=== PATIENT | female | born 1980 | race Two or more races ===

== ENCOUNTER 2024-09-17 14:34 | Emergency (ER) | payer MEDICAID, SELFPAY ==
[2024-09-17 14:49] VITALS: BP 180/80; PULSE 81; RESP 18; TEMP 37; O2SAT 99; BMI 46.2
[2024-09-17] MEDS: IBUPROFEN TAB 400 MG TABLET 800 MG PO (15:37)
--- NOTE | 2024-09-17 16:20 | PD.EDEAR ---
ED Ear RME/HPI General Chief complaint: Ear Stated complaint: Left ear pain X 1 week Time Seen by Provider: 09/17/24 14:37 Arrival date/time: 09/17/24 14:34 44-year-old female presents emergency department complains of left ear pain ongoing x 1 week patient reports no fever nausea or vomiting Limitations: no limitations Related Data Home Medications ?Medication ?Instructions ?Recorded ?Confirmed Vitamin * 1 tab PO QDAY #0 tabs 04/28/14 08/08/22 ferrous sulfate 325 mg (65 mg 325 mg PO DAILY 07/26/22 08/08/22 iron) tablet (Iron (ferrous sulfate)) Previous Rx's ?Medication ?Instructions ?Recorded meloxicam 7.5 mg tablet 7.5 mg PO BID #10 tabs 06/28/24 amoxicillin 875 mg-potassium 1 tab PO BID 7 days #14 tabs 09/17/24 clavulanate 125 mg tablet ibuprofen 800 mg tablet 800 mg PO TID PRN pain #30 tabs 09/17/24 ofloxacin 0.3 % ear drops 10 drop otic (ear) QDAY 10 days 09/17/24 #10 mL Allergies Allergy/AdvReac Type Severity Reaction Status Date / Time No Known Allergies Allergy Unverified 06/28/24 10:46 Review of Systems Review of Systems Systems Reviewed: All systems reviewed, normal except as documented Constitutional Constitutional: Reports system reviewed and no additional complaints, except as documented, Denies fever(s) and Denies headache(s) Eyes Eyes: Reports system reviewed and no additional complaints, except as documented and Denies blurry vision ENT Ears, Nose, Mouth, and Throat: Reports system reviewed and no additional complaints, except as documented, Reports otalgia, Denies headache(s), Denies nasal congestion and Denies nasal discharge Cardiovascular Cardiovascular: Reports system reviewed and no additional complaints, except as documented, Denies chest pain and Denies dyspnea Respiratory Respiratory: Reports system reviewed and no additional complaints, except as documented, Denies chest congestion, Denies cough and Denies dyspnea Gastrointestinal Gastrointestinal: Reports system reviewed and no additional complaints, except as documented and Denies abdominal pain Integumentary/Breasts Skin/Breast: Reports system reviewed and no additional complaints, except as documented and Denies rash Neurologic Neurologic: Reports system reviewed and no additional complaints, except as documented, Reports as per HPI and Denies headache(s) Past Medical History Past Medical History NEUROLOGIC: Negative Neurological Disorders CARDIAC: Positive Hypertension (mother and father); Negative Congestive Heart Failure RESPIRATORY: Negative Chronic Obstructive Pulmonary Disease (COPD) or Asthma GASTROINTESTINAL: Negative Gastrointestinal Disorders GENITOURINARY: Negative Genitourinary Disorders or Renal Disease REPRODUCTIVE: Negative Pelvic Inflammatory Disease MUSCULOSKELETAL: Negative Musculoskeletal Disorders ENDOCRINE: Positive Diabetes Mellitus Type 2 (mother and father); Negative Diabetes Mellitus Type 1 HEMATOLOGIC: Negative Blood Disorders PSYCHO/SOCIAL: Positive Depression, Anxiety and Depression OTHER HISTORY: Negative Autoimmune Disease, Anesthesia Reactions, MRSA, Clostridium Difficile or Cancer Family History FAMILY HISTORY: Positive Family Cancer (grandfather judy); Negative Family Cardiac Disorders Surgical History SURGICAL: Negative Endocrine Surgery, Ear Surgery or Section Social History SMOKING STATUS: Never smoker ED Exam General Limitations: Present no limitations General appearance: Present alert and in no apparent distress Head Head exam: Present atraumatic Eye Eye exam: Present normal appearance, PERRL and EOMI ENT ENT exam: Present mucous membranes moist and other (Foreign body left ear) Neck Neck exam: Present normal inspection, full ROM and trachea midline Chest Chest inspection: Present normal inspection and symmetric chest wall rise Respiratory Respiratory exam: Present normal lung sounds bilaterally Cardiovascular Cardiovascular exam: Present regular rate, normal rhythm and normal heart sounds Abdominal Exam Abdominal exam: Present soft and normal bowel sounds Extremities Exam Extremities exam: Present normal inspection and full ROM Back Exam Back exam: Present normal inspection and full ROM Neurological Exam Neurological exam: Present alert, oriented X3 and CN II-XII intact Psychiatric Psychiatric exam: Present normal affect and normal mood Skin Skin exam: Present warm, dry, intact and normal color Course Quality Measures none Orders Category Date Time Status ED Ear Irrigation X1 Care 09/17/24 15:27 Completed Ibuprofen Tab [Motrin Tab] Med 09/17/24 15:27 Discontinued 800 mg PO X1 ONE Vital Signs Vital signs: Vital Signs Temperature 98.6 F 09/17/24 14:49 Pulse Rate 81 09/17/24 14:49 Respiratory Rate 18 09/17/24 14:49 Blood Pressure 180/80 H 09/17/24 14:49 Pulse Oximetry (%) 99 09/17/24 14:49 Oxygen Delivery Method Room Air 09/17/24 14:49 O2 saturation 99% room air within normal limits Ear Patient data External records reviewed:: [facility] previous records Clinical information provided by:: patient Social determinants that could affect healthcare access:: none Patient has the following chronic illnesses:: none How is presenting disease/condition affected by chronic disease/condition?: no chronic disease Evaluation data The following diagnostics were reviewed and interpreted by me:: other (specify) Lab and/or radiology exams considered but not ordered:: Consider not indicated Interpretation Summary: N/A Medications / Prescriptions Medications or Prescriptions considered but not ordered:: Given Medication administrations:: Medication Administration History Discontinued Medications Ibuprofen (Ibuprofen Tab 400 Mg Tablet) 800 mg PO X1 ONE Stop: 09/17/24 15:28 Last Admin: 09/17/24 15:37 Dose: 800 mg Documented By: KF Given Consultations Consultation(s) initiated? (list below): No Diagnosis Most likely diagnosis given after review of the tests above:: Left otitis externa, foreign body left ear Admission Indicated Admission indicated?: not indicated Admission Request Was there a request for admission?: No Disposition Plan Disposition Plan: Discharge Discharge Attestation Discharge Attestation: The patient and all family members were given an opportunity to ask questions and understood the discharge instructions. Discharge instructions specifically effects, indications for sooner follow up or return to the emergency department, and the expected course of current diagnosis. Patient condition: Stable Medical Decision Making MDM Narrative MDM Narrative: 44-year-old female presents emerged department complains of left ear pain ongoing x 1 week patient reports no fever nausea or vomiting On exam patient appears to have cottonball in her left ear as well as infection Left ear irrigated copiously I cannot clearly see the TM after the lavage and foreign bodies removed Patient reports she feels significantly better Patient be discharged home on antibiotics Patient discharged home in no distress to follow-up with primary care doctor in the next 24 to 48 hours and for any worsening symptoms to return to the ER immediately Differential Diagnosis Differential Diagnosis: Otitis media, otitis externa, incision tube dysfunction Medical Records Medical records reviewed: Yes I reviewed the patient's medical records. Discharge Plan Plan Patient Disposition: HOME (Self Care) Disposition Comment: Stable Prescriptions/Referrals Prescriptions/Med Rec: New ibuprofen 800 mg tablet 800 mg PO TID PRN (Reason: pain) Qty: 30 0RF ofloxacin 0.3 % drops 10 drop otic (ear) QDAY 10 Days Qty: 10 0RF amoxicillin-pot clavulanate 875-125 mg tablet 1 tab PO BID 7 Days Qty: 14 0RF No Action Vitamin * 1 EACH tablet 1 tab PO QDAY Qty: 0 ferrous sulfate [Iron (ferrous sulfate)] 325 mg (65 mg iron) Tablet 325 mg PO DAILY meloxicam 7.5 mg tablet 7.5 mg PO BID Qty: 10 0RF Problem List Clinical Impression: Foreign body in left ear, Otitis externa Patient/Caregiver Discharge Instructions Education Materials: Anatomy of the Ear Additional Instructions: Please follow up with your primary care doctor in the next 24-48hrs for any worsening symptoms return here immediately Print Language: Malian Stand Alone Forms: Rosa Award Info., Patient Portal Info Letter PA/RESIDENCE LEASING AGENT Supervising Physician PA/RESIDENCE LEASING AGENT Supervising Physician: Dr Nazario
== END 2024-09-17 16:26 | disposition home or self-care (01) ==
LOC: SERX 16:24
PROVIDERS: Emergency Provider Emergency Medicine; PCP Family Medicine
DX: T16.2XXA Foreign body in left ear, initial encounter (principal); H60.92 Unspecified otitis externa, left ear; W44.8XXA Other foreign body entering into or through a natural orifice, initial encounter
CPT/HCPCS: 69200; 99283; A9270

== ENCOUNTER → 2025-03-23 | Outpatient (CLI) | payer MEDICAID, SELFPAY ==
--- NOTE | 2025-03-23 09:00 | XR_ITS ---
Examination: Breast ultrasound, unilateral, left complete Date and time of exam: March 23, 2025 0923 hours INDICATIONS: Left breast pain 6 months Technique: Real-time smiley scale ultrasonographic imaging performed left breast including all 4 quadrants as well as nipple retroareolar and axillary region. Findings: 1:00 cyst 4 x 5 mm 5:00 cyst 4 x 6 mm No solid nodules IMPRESSION: BI-RADS Category 2: Benign findings
--- NOTE | 2025-03-23 10:00 | XR_ITS ---
Examination: Diagnostic digital mammography, bilateral Computer aided detection 3-D breast Tomosynthesis, bilateral Date and time of exam: March 23, 2025 0911 hours Comparison September 03, 2023 INDICATIONS: Left breast pain 7 months Technique: Nonmagnified MLO, CC views of the breasts to been obtained, reconstructed from 3-D Tomosynthesis images. R2 computer aided detection program utilized for evaluation of suspicious masses and/or abnormal calcifications. 3-D Tomosynthesis images obtained. Findings: The breasts are heterogeneously dense, which may obscure small masses Benign calcifications. No suspicious masses Impression: BI-RADS Category 0: Incomplete: Need additional imaging evaluation Awaiting the breast sonography report.
== END | disposition home or self-care (01) ==
DX: N64.4 Mastodynia (principal); N60.02 Solitary cyst of left breast; R92.333 Mammographic heterogeneous density, bilateral breasts
CPT/HCPCS: 76641; 77062; 77066; G0279

== ENCOUNTER 2025-04-21 13:01 | Inpatient (IN) | payer BC, MEDICAID, SELFPAY ==
--- NOTE | 2025-04-21 | XR_ITS ---
Examinations: MRI Brain without intravenous contrast. MRA brain without intravenous contrast. MRA carotids without intravenous contrast 3-D vascular reconstructions Date and time of exam: April 21, 2025 1607 hours INDICATIONS: Stroke alert today, onset focal neurologic deficit beginning 8:00 AM, including headache dizziness left facial droop Technique: Multiple axial and sagittal images of the brain have been obtained MRA brain carotid images without contrast obtained, including 3-D postprocessing, vascular maximum intensity projection images Findings: Sellaturcica is not enlarged. The optic chiasm and infundibular stalk are not remarkable. Prepontine and interpeduncular cisterns are not enlarged. No localized enlargement of the medulla or patrick. Fourth ventricle and cerebellar tonsils normal in position. Subacute hemorrhage is not seen. Fourth ventricle is midline. Mass in the cerebellopontine angle region is not evident. 7th and 8th nerve complexes exhibits symmetry. Globes are symmetrical with no retro-orbital mass. Increased white matter signal not seen Diffusion-weighted images demonstrate no focus of restricted diffusion Mass-effect upon the ventricular system is not identified. MRA carotid images no significant carotid stenoses. MRA brain images no large vessel cerebral occlusions Impression: Negative for acute hemorrhage, mass effect or midline shift No acute infarct No MR findings diagnostic for demyelinating disease No cerebral large vessel arterial occlusions
[2025-04-21 13:16] VITALS: BP 149/92; PULSE 71; RESP 18; TEMP 36.9; O2SAT 96
--- NOTE | 2025-04-21 13:36 | XR_ITS ---
Examination: CTA carotids with intravenous contrast CTA brain, head with intravenous contrast. 2-D sagittal, coronal reconstructions. 3-D reconstructions. Exam date and time: April 21, 2025 1348 hours INDICATIONS: Sudden onset generalized weakness slurred speech focal neurologic deficit today, stroke alert CTDI: vol (mGy) 33 DLP: (mGycm) 126 Technique: Multiple CTA axial brain, head carotid images post intravenous contrast injection 100 cc, [id number]. 2-D sagittal, coronal reconstructions. 3-D reconstructions, 3-D post processing including vascular maximum intensity projection images. Low dose protocols were performed. One or more of the following dose reduction techniques were used; automated exposure control, adjustment of the mA and/or KV according to patient size, use of iterative reconstruction technique. Findings: No significant common carotid carotid bifurcation or internal carotid artery stenoses Codominant vertebral arteries with no critical stenoses of the vertebral arteries in the neck Intracranial vertebral arteries basilar artery and posterior cerebral branches do fill Juxtasellar or supracondylar portions internal carotid arteries demonstrate no occlusions M1 segments middle cerebral arteries middle cerebral artery trifurcation vessels anterior cerebral arteries are intact IMPRESSION: No significant neck arterial stenoses No cerebral large vessel arterial occlusions
--- NOTE | 2025-04-21 13:36 | XR_ITS ---
Examination: CT brain head without contrast. 2-D sagittal coronal reconstructions Date and time of exam:April 21, 2025 1340 hours INDICATIONS: Stroke alert, onset onset generalized body weakness slurred speech beginning this morning CTDI: vol (mGy):53.7 DLP: (mGycm):1067 Technique: Multiple CT axial sections of the brain have been obtained, 5 mm slice thickness. Contrast has not been administered. 2-D sagittal, coronal reconstructions have been obtained Low dose protocols were performed. One or more of the following dose reduction techniques were used; automated exposure control, adjustment of the mA and/or KV according to patient size, use of iterative reconstruction technique. Findings: No significant ventricular enlargement. Intra-axial or extra-axial hemorrhage density is not seen. No mass effect or midline shift Basal cisterns are not remarkable. Fourth ventricle is midline. Cranial vault intact. Impression: Negative for acute hemorrhage, mass effect or midline shift
--- NOTE | 2025-04-21 13:38 | EKG_ITS ---
[facility] Test Date: 2025-04-21 Pat Name: LEEANNE FORTUNE Department: Room: - Gender: Female [place] Operator: : 1980 Requested By: Matt Torres Order Number: [id number] Reading MD: Matt Torres Measurements Intervals [place] Rate: 74 P: 50 WI: 170 QRS: 41 QRSD: 94 T: 53 QT: 387 QTc: 430 Interpretive Statements SINUS RHYTHM No previous ECG available for comparison /store/S0/[id number].pdf
--- NOTE | 2025-04-21 13:52 | PD.EDNEURO ---
Neuro Symptoms Deficit-RME/HPI General Chief Complaint: Dizziness Stated Complaint: Dizzy, SMITH Time Seen by Provider: 04/21/25 13:06 Source: patient and family Arrival date/time: This is a case of a 44-year-old female with history of anemia and prediabetes came in in the emergency room due to headache and dizziness since 8:00 in the morning patient denies any weakness numbness or tingling sensation after I did my examination patient noted to have sudden left facial droop and some slurring of speech code stroke was called Limitations: no limitations Related Data Home Medications ?Medication ?Instructions ?Recorded ?Confirmed Vitamin * 1 tab PO QDAY #0 tabs 04/28/14 08/08/22 ferrous sulfate 325 mg (65 mg 325 mg PO DAILY 07/26/22 08/08/22 iron) tablet (Iron (ferrous sulfate)) Previous Rx's ?Medication ?Instructions ?Recorded meloxicam 7.5 mg tablet 7.5 mg PO BID #10 tabs 06/28/24 ibuprofen 800 mg tablet 800 mg PO TID PRN pain #30 tabs 09/17/24 Allergies Allergy/AdvReac Type Severity Reaction Status Date / Time No Known Allergies Allergy Verified 04/21/25 13:05 Review of Systems Review of Systems Systems Reviewed: All systems reviewed, normal except as documented Constitutional Constitutional: Reports system reviewed and no additional complaints, except as documented, Reports as per HPI, Denies chills, Denies daytime sleepiness, Denies difficulty sleeping, Denies excessive sweating, Denies fatigue, Denies fever(s), Denies frequent falls, Reports headache(s), Denies increased appetite, Denies poor appetite, Denies lethargy, Denies malaise, Denies night sweats, Denies snoring, Denies stops breathing during sleep, Denies weakness, Denies weight gain and Denies weight loss Eyes Eyes: Reports system reviewed and no additional complaints, except as documented, Reports as per HPI, Reports blurry vision, Denies change in vision, Denies decreased night vision, Denies diplopia, Denies eye discharge, Denies dry eyes, Denies exophthalmos, Denies floaters, Denies irritation, Denies itchy eyes, Denies loss of peripheral vision, Denies loss of vision, Denies other visual disturbances, Denies photophobia, Denies requires corrective lenses, Denies seeing flashes, Denies spots in vision and Denies tunnel vision ENT Ears, Nose, Mouth, and Throat: Reports system reviewed and no additional complaints, except as documented, Reports as per HPI, Denies abnormal hearing, Denies disequilibrium, Reports dizziness, Reports headache(s) and Reports vertigo Cardiovascular Cardiovascular: Reports system reviewed and no additional complaints, except as documented, Reports as per HPI, Denies chest pain, Denies dyspnea and Denies syncope Respiratory Respiratory: Reports system reviewed and no additional complaints, except as documented, Reports as per HPI, Denies cough, Denies dyspnea and Denies snoring Gastrointestinal Gastrointestinal: Reports system reviewed and no additional complaints, except as documented, Reports as per HPI, Denies abdominal pain, Denies nausea and Denies vomiting Musculoskeletal Musculoskeletal: Reports system reviewed and no additional complaints, except as documented, Reports as per HPI, Denies abnormal gait, Denies numbness and Denies tingling Neurologic Neurologic: Reports system reviewed and no additional complaints, except as documented, Reports as per HPI, Denies abnormal gait, Denies abnormal hearing, Denies abnormal movements, Reports abnormal speech, Denies behavioral changes, Denies burning sensations, Denies confusion, Denies convulsions, Denies disequilibrium, Reports dizziness, Denies localized weakness, Denies frequent falls, Reports headache(s), Denies lack of coordination, Denies loss of vision, Denies memory loss, Denies numbness, Denies other visual disturbances, Denies paresthesias, Denies radicular pain, Denies restless legs, Denies seizure-like activity, Denies sensory deficit, Denies syncope, Denies tingling, Denies tremor(s), Reports vertigo, Denies weakness and Reports other (Facial droop) Psychiatric Psychiatric: Denies behavioral changes, Denies confusion and Denies memory loss Endocrine Endocrine: Denies excessive sweating and Denies fatigue Allergic/Immunologic Allergic/Immunologic: Denies itchy eyes Past Medical History Past Medical History NEUROLOGIC: Negative Neurological Disorders CARDIAC: Positive Hypertension (mother and father); Negative Congestive Heart Failure RESPIRATORY: Negative Chronic Obstructive Pulmonary Disease (COPD) or Asthma GASTROINTESTINAL: Negative Gastrointestinal Disorders GENITOURINARY: Negative Genitourinary Disorders or Renal Disease REPRODUCTIVE: Negative Pelvic Inflammatory Disease MUSCULOSKELETAL: Negative Musculoskeletal Disorders ENDOCRINE: Positive Diabetes Mellitus Type 2 (mother and father); Negative Diabetes Mellitus Type 1 HEMATOLOGIC: Negative Blood Disorders PSYCHO/SOCIAL: Positive Depression, Anxiety and Depression OTHER HISTORY: Negative Autoimmune Disease, Anesthesia Reactions, MRSA, Clostridium Difficile or Cancer Family History FAMILY HISTORY: Positive Family Cancer (grandfather wallykemia); Negative Family Cardiac Disorders Surgical History SURGICAL: Negative Endocrine Surgery, Ear Surgery or Section Social History SMOKING STATUS: Never smoker ED Exam General Limitations: Present no limitations General appearance: Present alert and in no apparent distress Head Head exam: Present atraumatic, normocephalic and normal inspection Eye Eye exam: Present normal appearance, PERRL and EOMI ENT ENT exam: Present normal exam, normal oropharynx and mucous membranes moist Neck Neck exam: Present normal inspection, full ROM and trachea midline; Absent tenderness, meningismus or lymphadenopathy Chest Chest inspection: Present normal inspection and symmetric chest wall rise; Absent tenderness or rash Respiratory Respiratory exam: Present normal lung sounds bilaterally; Absent respiratory distress, wheezes, stridor, accessory muscle use or prolonged expiratory phase Cardiovascular Cardiovascular exam: Present regular rate, normal rhythm and normal heart sounds; Absent bradycardia, tachycardia, irregular rhythm, systolic murmur or diastolic murmur Abdominal Exam Abdominal exam: Present soft and normal bowel sounds; Absent distention, tenderness, guarding, rebound, rigidity, diminished bowel sounds or hyperactive bowel sounds Extremities Exam Extremities exam: Present normal inspection and full ROM Back Exam Back exam: Present normal inspection and full ROM Neurological Exam Neurological exam: Present alert, oriented X3, normal gait, motor sensory deficit and other (Patient is awake alert oriented x 4 with some slurring of speech left facial droop the rest of the cranial nerve test is normal steady gait negative Babinski memory intact); Absent reflexes normal Expanded Neurological Exam Patient oriented to: Present person, place and time Speech: Present fluid speech (Slurring with speech) Cranial nerves: Normal: EOM function (II, III, IV, ), facial sensation (V), gag reflex (IX), spinal accessory function (XI) and tongue deviation (XII) and Abnormal Left: facial palsy (VII) Cerebellar function: Normal: finger to nose and heel to suárez Cerebellar function: Present normal gait Motor strength - LUE: 5/5 Motor strength - RUE: 5/5 Motor strength - LLE: 5/5 Motor strength - RLE: 5/5 Upper motor neuron exam: Normal: dwihgt neglect, pronator drift, Babinski sign and sensory extinction Sensory exam upper extremity: Normal: light touch, pin prick, temperature and 2 point discrimination Sensory exam lower extremity: Normal: light touch, pin prick, temperature and 2 point discrimination DTR: 2+: biceps (L) and biceps (R) Psychiatric Psychiatric exam: Present normal affect and normal mood Skin Skin exam: Present warm, dry, intact and normal color Course Quality Measures none Orders Category Date Time Status Admit to Inpatient Status Routine Admission 04/21/25 14:08 Active Patient Condition Routine Admission 04/21/25 14:07 Ordered Bedside Blood Glucose NOW Care 04/21/25 13:38 Active COVID-19 Screening Questionnaire NOW Care 04/21/25 14:00 Active Roustabout Supervisor NOW Care 04/21/25 13:38 Active Continuous Pulse Oximetry NOW Care 04/21/25 13:38 Active Decision to Admit X1 Care 04/21/25 14:00 Active EKG (ED ONLY) *Do not use* NOW Care 04/21/25 13:38 Active In and Out Catheter NEEDED Care 04/21/25 13:38 Active Insert IV NOW Care 04/21/25 13:38 Active NIH Stroke Scale now Care 04/21/25 13:38 Active NPO NOW Care 04/21/25 13:38 Active Notify provider NEEDED Care 04/21/25 14:07 Active Nurse Swallow Screen x1 Care 04/21/25 13:38 Active Consult to Neurology / Tele-Neurology Routine Cons 04/21/25 13:[address] angio stroke protocol Stat Exams 04/21/25 13:[address] stroke protocol Stat Exams 04/21/25 13:36 Completed EKG (ED Only) Stat Exams 04/21/25 13:38 Ordered CBC Stat Lab 04/21/25 13:28 Completed Comprehensive Metabolic Panel Stat Lab 04/21/25 13:28 Completed Drug Screen,Urine Stat Lab 04/21/25 13:38 Ordered HCG Titer if Positive Stat Lab 04/21/25 13:28 Completed Magnesium Stat Lab 04/21/25 13:28 Completed Partial Thromboplastin Time Stat Lab 04/21/25 13:28 Completed Prothrombin Time with INR Stat Lab 04/21/25 13:28 Completed Troponin I Stat Lab 04/21/25 13:28 Completed Urinalysis Stat Lab 04/21/25 13:38 Ordered Urine Culture Stat Lab 04/21/25 13:38 Ordered Aspirin Med 04/21/25 14:00 Once 325 mg PO X1 ONE Code Status Routine Oth 04/21/25 14:07 Ordered Vital Signs Vital signs: Vital Signs Temperature 98.5 F 04/21/25 13:16 Pulse Rate 71 04/21/25 13:16 Respiratory Rate 18 04/21/25 13:16 Blood Pressure 149/92 H 04/21/25 13:16 Pulse Oximetry (%) 96 04/21/25 13:16 Oxygen Delivery Method Room Air 04/21/25 13:16 Patient is afebrile not tachycardic not tachypneic BP stable not hypoxic oxygen saturation is 96% in room air Neuro Symptoms / Deficit MDM Narrative MDM Narrative:: This is a case of a 44-year-old female with history of anemia and diabetes came in in the emergency room due to headache and dizziness since 8:00 in the morning patient denies any weakness numbness or tingling sensation after I did my examination patient noted to have sudden left facial droop and some slurring of speech code stroke was called physical examination patient is awake alert oriented not in distress nontoxic looking well-hydrated well-nourished negative for meningeal sign HEENT exam is normal PERRL EOM intact normal conjunctiva no pappiledema lungs sound is clear no crackles no rales no retraction no stridor either heart normal rate regular rhythm no murmur neurological exam pertinent is left facial droop and slurring of speech patient memory intact steady gait awake alert oriented x 4 negative Babinski motor 5/5 in all extremities sensory +2 in all extremities reflex +2 in all extremities patient was brought in the CT scan as soon as the code stroke and noted to be negative for acute hemorrhage mass I spoke to Dr. edmondson neurologist on-call discussed patient condition history and physical examination since the CT scan were normal he ordered only aspirin 81 mg and patient will be admitted for stroke workup spoke to Dr. serrano hospitalist discussed patient condition history and physical examination relayed the neurologist suggestion and accept patient admission discussed with the patient the treatment plan admission and agreed Patient data External records reviewed:: [facility] previous records Clinical information provided by:: patient and family Social determinants that could affect healthcare access:: none Patient has the following chronic illnesses:: None How is presenting disease/condition affected by chronic disease/condition?: no chronic disease Evaluation data The following diagnostics were reviewed and interpreted by me:: lab results and radiology exam(s) Lab and/or radiology exams considered but not ordered:: Reviewed Interpretation Summary: Reviewed Medications / Prescriptions Medications or Prescriptions considered but not ordered:: Given Medication administrations:: Medication Administration History Aspirin (Aspirin 325 Mg Tablet) 325 mg PO X1 ONE Stop: 04/21/25 14:01 Given Consultations Consultation(s) initiated? (list below): Yes Consultation #1 (Physician, Specialty, Details): dr edmondson admit pt for cva workup start aspirin Consultation #2 (Physician, Specialty, Details): dr serrano discussed patient condition history and physical examination agreed and accept patient for admission Diagnosis Neuro Differential Diagnosis: subarachnoid hemorrhage, cerebrovascular accident and transient cerebral ischemia Most likely diagnosis given after review of the tests above:: CVA Admission Indicated Admission indicated?: indicated Explain why admission is indicated or not indicated:: CVA Admission Request Was there a request for admission?: Yes Admission Attestation Admission request attestation: Discussed case with [] from Hospitalist service regarding admission. Discussed patients ED course, exam findings, labs, and radiology results. The Hospitalist [agrees,declines] to accept the patient for admission. Disposition Plan Disposition Plan: Admit Discharge Plan Plan Patient Disposition: Admit Acute Care w/in Hospital Patient condition on transfer: Stable Prescriptions/Referrals Prescriptions/Med Rec: No Action Vitamin * 1 EACH tablet 1 tab PO QDAY Qty: 0 ibuprofen 800 mg tablet 800 mg PO TID PRN (Reason: pain) Qty: 30 0RF ferrous sulfate [Iron (ferrous sulfate)] 325 mg (65 mg iron) Tablet 325 mg PO DAILY meloxicam 7.5 mg tablet 7.5 mg PO BID Qty: 10 0RF Problem List Clinical Impression: Acute CVA (cerebrovascular accident) Patient/Caregiver Discharge Instructions Education Materials: ED Stroke, Completed Print Language: American Stand Alone Forms: Rosa Award Info., Patient Portal Info Letter PA/AUDIO VISUAL SECRETARY Supervising Physician PA/AUDIO VISUAL SECRETARY Supervising Physician: dr cool
[2025-04-21 13:56] LABS: Basophils # (Auto) 0.1 Thou/mm3 (0.0-0.2); Basophils % (Auto) 0 % (0-2.5); Eosinophils # (Auto) 0.5 Thou/mm3 (0.0-0.5); Eosinophils % (Auto) 3 % (0-10); Hematocrit 40.5 % (36.0-46.0); Hemoglobin 12.7 g/dL (12.0-16.0); Immature Granulocytes Auto 0.08 Thou/mm3 (0.00-0.00); Lymphocytes # (Auto) 5.0 Thou/mm3 (1.0-4.8); Lymphocytes % (Auto) 30 % (10-50); Mean Corpuscular HGB Conc 31.4 g/dl (31.0-37.0); Mean Corpuscular Hemoglobin 24.2 pg (25.0-35.0); Mean Corpuscular Volume 77 fL (80-100); Monocytes # (Auto) 1.0 Thou/mm3 (0.0-0.8); Monocytes % (Auto) 6 % (0-12); Neutrophils # (Auto) 9.9 Thou/mm3 (1.8-7.7); Neutrophils % (Auto) 60 % (37-80); Nucleated Red Blood Cell # 0.00 Thou/mm3 (0.00-0.00); Nucleated Red Blood Cell % 0 /100 WBC (0); Platelet Count 380 Thou/mm3 (140-440); RDW Standard Deviation 42.4 fL (36.4-46.3); Red Blood Count 5.24 Miln/mm3 (4.00-5.20); White Blood Count 16.6 Thou/mm3 (3.6-11.0)
[2025-04-21 14:03] LABS: HCG Titer if Positive Negative; INR 1.0 (0.9-1.3); Partial Thromboplastin Time 30.3 Seconds (22.0-36.0); Prothrombin Time 10.9 Seconds (9.0-12.2)
[2025-04-21 14:06] LABS: Alanine Aminotransferase 18 U/L (10-49); Albumin, Serum 4.7 gm/dL (3.5-5.0); Albumin/Globulin Ratio 1.5 (1.2-2.2); Alkaline Phosphatase 105 U/L (46-116); Anion Gap 9 (7-16); Aspartate Amino Transferase 24 U/L (0-34); BUN/Creatinine Ratio 15 Ratio (12-20); Bilirubin,Total 0.4 mg/dL (0.3-1.2); Blood Urea Nitrogen 9 mg/dL (9-23); Calcium 9.1 mg/dL (8.3-10.6); Calcium (Corrected) 9.1 mg/dL (8.5-10.1); Carbon Dioxide 24.0 mMol/L (20.0-31.0); Chloride 105 mMol/L (98-107); Creatinine (Component) 0.6 mg/dL (0.6-1.3); Globulin 3.2 gm/dL (2.3-3.5); Glucose 92 mg/dL (74-106); Magnesium 2.0 mg/dL (1.6-2.6); Osmolality,Calculated 274 (275-295); Potassium 4.0 mMol/L (3.4-5.1); Sodium 138 mMol/L (136-145); Total Protein 7.9 gm/dL (5.7-8.2); Troponin I < 0.002 ng/mL (0.0-0.045); eGFR > 60 See Note
--- NOTE | 2025-04-21 14:09 | PD.TNEUROPRO ---
Tele Neuro Progress Note Progress Note Date 04/21/25 Most Recent Vital Signs Last Vital Signs Temp 98.5 F 04/21/25 13:16 Pulse 71 04/21/25 13:16 Resp 18 04/21/25 13:16 BP 149/92 H 04/21/25 13:16 Pulse Ox 96 04/21/25 13:16 O2 Del Method Room Air 04/21/25 13:16 Laboratory-Coagulation Panel PT 10.9 Seconds (9.0-12.2) 04/21/25 13:28 INR 1.0 (0.9-1.3) 04/21/25 13:28 APTT 30.3 Seconds (22.0-36.0) 04/21/25 13:28 Progress Note Narrative [facility] Patient Name:???Latoya Dorantes Date of :???1980 Identification Number:??? Date of Service:???04/21/2025 13:30:33 Diagnosis:?R47.81 - Slurred speech Impression: ?44-year-old female without significant past medical history except for anemia and obesity. ? last known well was around 8 AM when she felt dizzy she also developed nausea vomiting slurring of the speech, difficulty finding words and weakness on the left arm and leg. ?Apparently her symptoms got worse when I saw her it was extremely hard to understand what she is saying she is very slurred and stuttering. She has difficulty finding words. ?She has decreased sensation around her left face and arm with mild drift of her left upper extremity left lower extremity. CT head was negative for acute finding. She has a lot of anxiety symptoms and hyperventilation. ? ? ?Possible new ischemic stroke she was outside the window for thrombolytics CTA is pending to rule out LVO. ?If there is no LVO plan for routine stroke admission and workup. ?If she is not able to swallow we can do rectal aspirin 300 mg x 1 in the emergency room and tomorrow 300 mg daily. ?If she is able to swallow we can do oral aspirin 325 mg in the emergency room followed by tomorrow baby aspirin and Plavix 75 mg daily. ?Permissive hypertension as below. ?MRI of the brain without contrast. ?Echocardiogram with bubble study, fasting lipid profile hemoglobin A1c. ?If she does indeed have a stroke she would benefit from hypercoagulable workup given the relatively young age. ?PT, OT, speech. ?DVT prophylaxis Lovenox or heparin subcu can be used. ?Telemetry monitoring. ?Neurology to follow. Our recommendations are outlined below. Recommendations: ? Stroke/Telemetry Floor ? Neuro Checks (Q2) ? Bedside Swallow Eval ? DVT Prophylaxis ? IV Fluids, Normal Saline ? Head of Bed 30 Degrees ? Euglycemia and Avoid Hyperthermia (PRN Acetaminophen) ? Antihypertensives PRN if Blood pressure is greater than 220/120 or there is a concern for End organ damage/contraindications for permissive HTN. If blood pressure is greater than 220/120 give labetalol PO or IV or Vasotec IV with a goal of 15% reduction in BP during the first 24 hours. Sign Out: ? Discussed with Emergency Department Provider ? Discussed with Rapid Response Team Advanced Imaging: Advanced imaging has been ordered. Results pending. Metrics: Last Known Well: 04/21/2025 08:00:00 Dispatch Time: 04/21/2025 13:30:33 Arrival Time: 04/21/2025 13:02:00 Initial Response Time: 04/21/2025 13:35:53Symptoms: left sided numbness. Initial patient interaction: 04/21/2025 13:35:54 NIHSS Assessment Completed: 04/21/2025 13:38:00Patient is not a candidate for Thrombolytic. Thrombolytic Medical Decision: 04/21/2025 13:38:00Patient was not deemed candidate for Thrombolytic because of following reasons: LKW outside 4.[address] Head: CT head unremarkable for acute infarction or hemorrhage per Radiology: no acute findings. I personally reviewed all the CT images that were available to me and it showed: no acute findings. Primary Provider Notified of Diagnostic Impression and Management Plan on: 04/21/2025 14:00:00 History of Present Illness:Patient is a 44 year old Female. Patient was brought by private transportation with symptoms of left sided numbness. 44-year-old female without significant past medical history except for anemia and obesity. last known well was around 8 AM when she felt dizzy she also developed nausea vomiting slurring of the speech, difficulty finding words and weakness on the left arm and leg. Apparently her symptoms got worse when I saw her it was extremely hard to understand what she is saying she is very slurred and stuttering. She has difficulty finding words. She has decreased sensation around her left face and arm with mild drift of her left upper extremity left lower extremity. CT head was negative for acute finding. She has a lot of anxiety symptoms and hyperventilation. Past Medical History: ?There is no history of Hypertension ?There is no history of Diabetes Mellitus ?There is no history of Hyperlipidemia ?There is no history of Atrial Fibrillation ?There is no history of Coronary Artery Disease ?There is no history of Stroke Medications: No Anticoagulant use? No Antiplatelet use Reviewed EMR for current medications Allergies:? Reviewed Social History: Smoking: No Family History: There is no family history of premature cerebrovascular disease pertinent to this consultation ROS : 14 Points Review of Systems was performed and was negative except mentioned in HPI. Past Surgical History: There Is No Surgical History Contributory To Today?s Visit Examination: BP(176/108),?Pulse(85), 1A: Level of Consciousness - Alert; keenly responsive?+ 0 1B: Ask Month and Age - Both Questions Right?+ 0 1C: Blink Eyes & Squeeze Hands - Performs Both Tasks?+ 0 2: Test Horizontal Extraocular Movements - Normal?+ 0 3: Test Visual Renteria - No Visual Loss?+ 0 4: Test Facial Palsy (Use Grimace if Obtunded) - Normal symmetry?+ 0 5A: Test Left Arm Motor Drift - Drift, but doesn't hit bed?+ 1 5B: Test Right Arm Motor Drift - No Drift for 10 Seconds?+ 0 6A: Test Left Leg Motor Drift - Drift, but doesn't hit bed?+ 1 6B: Test Right Leg Motor Drift - No Drift for 5 Seconds?+ 0 7: Test Limb Ataxia (FNF/Heel-Burton) - No Ataxia?+ 0 8: Test Sensation - Mild-Moderate Loss: Less Sharp/More Dull?+ 1 9: Test Language/Aphasia - Severe Aphasia: Fragmentary Expression, Inference Needed, Cannot Identify Materials?+ 2 10: Test Dysarthria - Severe Dysarthria: Unintelligble Slurring or Out of Proportion to Aphasia?+ 2 11: Test Extinction/Inattention - No abnormality?+ 0 NIHSS Score:?7 NIHSS Free Text :?lot of stutering Pre-Morbid Modified Lizzie Scale:0 Points = No symptoms at all Spoke with :?JOSEPH CURRY This consult was conducted in real time using interactive audio and video technology. Patient was informed of the technology being used for this visit and agreed to proceed. Patient located in hospital and provider located at home/office setting. Patient is being evaluated for possible acute neurologic impairment and high probability of imminent or life-threatening deterioration. I spent total of 60 minutes providing care to this patient, including time for face to face visit via telemedicine, review of medical records, imaging studies and discussion of findings with providers, the patient and/or family. Dr Kristine Wang [facility] For Inpatient follow-up with [facility] physician please call [facility] at . As we are not an outpatient service for any post hospital discharge needs please contact the hospital for assistance. If you have any questions for the [facility] physicians or need to reconsult for clinical or diagnostic changes please contact us via [facility] at .
--- NOTE | 2025-04-21 14:26 | PD.RESHP ---
Documentation for date of: 04/21/25 HPI History of Present Illness Chief complaint: Left facial droop and numbness and weakness in left upper+lower extremity History of present illness: This patient is a 44-year-old female with past medical history of iron deficiency anemia, uke-lnsnikc-pjeoxugut diabetes and migraine presented to the ED on 04/21/2025 with chief complaint of dizziness and pain in her head while she woke up this morning at 11 AM. Patient stated that she was going to restroom while she had headache explained as popping sensation in her head and she felt weakness more on the left side. She sat on the bed and did not hit her head on the floor. She endorsed feeling dizzy. While she was brought in by EMS they noticed left-sided facial droop with slurred speech. She denied any fever, cough, chest pain, burning or dysuria or any other symptom. She had no past medical history of stroke. She felt weaker on her left side. Her symptoms persisted while she was examined in the ED. Stroke alert was initiated. She also reported to have decreased sensation around the left face and arm. Mild drift of left upper extremity as well as left lower extremity. NIHSS score was 6. Last well-known time was 8 AM. Patient arrived in the ER at 13: 02. Head CT showed no acute changes. Patient was out of window for tPA and not a candidate for thrombolytic outside 4.5-hour window. Teleneuro recommended admitting for stroke workup. In the ED, patient was mildly hypertensive, had regular pulse, afebrile and saturating well on room air. Labs showed leukocytosis, hemoglobin stable with low MCV. Coagulation panel was unremarkable. Chemistry panel was unremarkable. Kidney function stable. Blood glucose 92. Troponin I was negative. Urinalysis showed ketones only. U tox was pending. Brain MRI showed no acute infarct. In the ED, patient received aspirin 300 mg per rectum x 1. PMH: Iron deficiency anemia, migraine, diabetes PSH: Cholecystectomy SH: Denies smoking, drinking alcohol. No history of illicit drug use Allergies: NKDA Home medications: Iron pills, multivitamin, metformin 500 mg, sumatriptan. Patient is not taking topiramate anymore for migraine. Patient is admitted for further workup of possible stroke versus acute anxiety. Review of Systems Review of Systems Systems Reviewed: All systems reviewed, normal except as documented Past Medical History Past Medical History NEUROLOGIC: Negative Neurological Disorders CARDIAC: Positive Hypertension (mother and father); Negative Congestive Heart Failure RESPIRATORY: Negative Chronic Obstructive Pulmonary Disease (COPD) or Asthma GASTROINTESTINAL: Negative Gastrointestinal Disorders GENITOURINARY: Negative Genitourinary Disorders or Renal Disease REPRODUCTIVE: Negative Pelvic Inflammatory Disease MUSCULOSKELETAL: Negative Musculoskeletal Disorders ENDOCRINE: Positive Diabetes Mellitus Type 2 (mother and father); Negative Diabetes Mellitus Type 1 HEMATOLOGIC: Negative Blood Disorders PSYCHO/SOCIAL: Positive Depression, Anxiety and Depression OTHER HISTORY: Negative Autoimmune Disease, Anesthesia Reactions, MRSA, Clostridium Difficile or Cancer Family History FAMILY HISTORY: Positive Family Cancer (grandfather lukemia); Negative Family Cardiac Disorders Surgical History SURGICAL: Negative Endocrine Surgery, Ear Surgery or Section Social History SMOKING STATUS: Never smoker Exam Vital Signs Temp Pulse Resp BP Pulse Ox O2 Del Method 98.5 F 71 18 149/92 H 96 Room Air 04/21/25 13:16 04/21/25 13:16 04/21/25 13:16 04/21/25 13:16 04/21/25 13:16 04/21/25 13:16 Narrative Exam GENERAL APPEARANCE: AxOx4,obese female with mild slurred speech in no acute distress. HEENT: NC, AT. MMM. EOMI, clear conjunctiva, oropharynx clear. NECK: Supple without lymphadenopathy. No stiffness or restricted ROM. HEART: Regular rate and regular rhythm, normal S1/S2, no m/r/g LUNGS: CTAB, moving air well. No crackles or wheezes are heard. ABDOMEN: Soft, nontender, nondistended with good bowel sounds heard. BACK: No CVAT, no obvious deformity. EXTREMITIES: Without cyanosis, clubbing or edema. NEUROLOGICAL: Grossly nonfocal. Alert and orientedx3. Left Facial drop. Left upper ext power 3/5 Rt upper ext power 4/5 power in RLE and power 5/5 in LLE Skin: Warm and dry without any rash. Psych: appropriate mood and affect Results: Labs 04/23/25 05:30 04/23/25 05:30 Labs: Short CBC 04/21/25 Range/Units 13:28 WBC 16.6 H (3.6-11.0) Thou/mm3 Hgb 12.7 (12.0-16.0) g/dL Hct 40.5 (36.0-46.0) % Plt Count 380 (140-440) Thou/mm3 BMP 04/21/25 13:28 Sodium 138 Potassium 4.0 Chloride 105 Carbon Dioxide 24.0 BUN 9 Creatinine 0.6 Glucose 92 Calcium 9.1 Cardiac Enzymes 04/21/25 Range/Units 13:28 Troponin I < 0.002 (0.0-0.045) ng/mL Liver Function 04/21/25 Range/Units 13:28 Total Bilirubin 0.4 (0.3-1.2) mg/dL AST 24 (0-34) U/L ALT 18 (10-49) U/L Alkaline Phosphatase 105 (46-116) U/L Albumin 4.7 (3.5-5.0) gm/dL Quality Measures Quality Measures VTE prophylaxis (Heparin SC) Medications Home Medications and Allergies Home Medications ?Medication ?Instructions ?Recorded ?Confirmed ?Type ferrous sulfate 325 mg (65 mg 325 mg PO DAILY 07/26/22 04/22/25 History iron) tablet (Iron (ferrous sulfate)) ascorbic acid (vitamin C) 1,000 mg 1 g PO DAILY 04/22/25 04/22/25 History tablet cholecalciferol (vitamin D3) 125 125 mcg PO DAILY 04/22/25 04/22/25 History mcg (5,000 unit) capsule metformin 500 mg tablet,extended 1,000 mg PO HS 04/22/25 04/22/25 History release 24hr (osmotic) sumatriptan succinate 50 mg tablet 50 mg PO Q6HR PRN migraine headache 04/22/25 04/22/25 History tirzepatide (weight loss) 2.5 2.5 mg subcut QWEEK 04/22/25 04/22/25 History mg/0.5 mL subcutaneous pen injector (Zepbound) topiramate 25 mg tablet 25 mg PO HS 04/22/25 04/22/25 History Allergies Allergy/AdvReac Type Severity Reaction Status Date / Time No Known Allergies Allergy Verified 04/21/25 13:05 Visit Medications Acetaminophen (Acetaminophen 325 Mg Tablet) 650 mg PO Q6H PRN PRN Reason: Fever >101.5 Stop: 05/21/25 14:16 Acetaminophen (Acetaminophen 325 Mg Tablet) 650 mg PO Q6H PRN PRN Reason: PAIN SCALE 1-3 (mild Stop: 05/21/25 14:16 Aspirin (Aspirin Ec 81 Mg Tabec) 81 mg PO QDAY FOZIA Stop: 05/22/25 08:59 Atorvastatin Calcium (Atorvastatin Calcium 20 Mg Tablet) 40 mg PO HS FO[facility]IA Stop: 05/21/25 20:59 Heparin Sodium (Porcine) (Heparin Sod Inj 5000 Unit/Ml Vial) 5,000 unit SC Q8HR FO[facility] Stop: 05/05/25 14:29 Hydralazine HCl (Hydralazine Inj 20 Mg/Ml Vial) 10 mg IVP Q6H PRN PRN Reason: Give if SBP>220 AND DBP>120 Stop: 05/21/25 14:29 Sodium Chloride (Ns) 1,000 mls @ 75 mls/hr IV .[id number] FOZIA Stop: 05/21/25 14:29 Ondansetron HCl (Ondansetron Inj 2 Mg/Ml Inj 2 Ml) 4 mg IVP Q6H PRN; Protocol PRN Reason: NAUSEA OR VOMITING Stop: 05/21/25 14:16 Pantoprazole Sodium (Pantoprazole Inj 40 Mg Vial) 40 mg IVP QDAY FO[facility] Stop: 05/21/25 14:29 Sennosides (Senna Tablet) 1 tab PO QDAY PRN; Protocol PRN Reason: constipation Stop: 05/21/25 14:16 Discontinued Medications Aspirin (Aspirin 325 Mg Tablet) 325 mg PO X1 ONE Stop: 04/21/25 14:01 Assessment & Plan Plan This patient is a 44-year-old female with past medical history of iron deficiency anemia and migraine presented to the ED on 04/21/2025 with chief complaint of dizziness and pain in her head while she woke up this morning at 11 AM. Patient stated that she was going to restroom while she had headache explained as popping sensation in her head and she felt weakness more on the left side. #?Possible stroke versus acute anxiety Patient presented with dizziness, left upper and lower extremity weakness with left-sided facial droop with numbness on left side of face. Also reported to have some blurred vision. Left upper extremity arm drift noted. Facial droop was noticed arrival in the ER. Less likely [place] palsy since forehead wrinkling intact Last well-known time 8 AM. Patient arrived at 13:00. NIHSS score 6. Head CT showed no acute changes. Patient was out of window for tPA and not a candidate for thrombolytic 4.5 hour window. Teleneuro recommended stroke workup. Head and neck CTA showed no LVO. MRI brain showed no acute infarction. No LVO. Patient failed swallow screen. She was given aspirin per rectal 300 mg x 1. U tox was negative. UA showed ketones only. Troponin I was negative. EKG showed sinus rhythm with QTc 430. Plan: Admitted to telemetry Continue aspirin 81 mg and Plavix 75 mg Neurochecks every 4 hourly Heparin subcut for DVT prophylaxis Neuro consulted, appreciate recs Orthostatic vitals Head of bed elevation 30 degrees IV fluid normal saline at 75 cc/h Pending echocardiogram with bubble study Antihypertensives PRN if Blood pressure is greater than 220/120 or there is a concern for End organ damage/contraindications for permissive HTN. If blood pressure is greater than 220/120 give labetalol PO or IV or Vasotec IV with a goal of 15% reduction in BP during the first 24 hours. Referred to PT, speech therapy Daily labs Will likely perform hypercoagulable workup tomorrow #Leukocytosis likely reactive -White count 16.6. No fever spikes were reported. Plan: ? Continue IV fluids ? Monitor for fever spikes #History of migraine -Patient takes sumatriptan. She used to take topiramate in the past. Plan: -Pain management as needed #History of iron deficiency anemia -Hemoglobin 12.7, MCV 77. -Patient is on iron pills for iron deficiency anemia. Plan -Resume patients home meds #Elevated fibrinogen seen per chart review -Patient had a fibrinogen level 626. Plan: -Rechecked fibrinogen levels #Hx of diabetes: -Unknown A1c Plan: -A1c AM -Insulin s/s -Hypoglycemia protocol in place Health Maintenance Diet: Failed swallow screen; awaiting speech eval DVT prophylaxis: Heparin SC GI prophylaxis: Protonix 40 mg IV day Code status: Full code Disp: Patient is admitted for workup of stroke vs acute anxiety. Patient was seen and discussed with attending Physician, Dr Epifanio Mcfarlane MD PGY-3 Attending Provider Attestation/Addendum Rupert, Flory Godfrey DO, attest that I was physically present for the moses portions of the service and evaluated the patient with the resident and I reviewed and discussed the case with the resident and agree with the resident's findings and plans of care as documented above Patient is a 44-year-old female with past medical history of NIDDM, iron deficiency anemia and migraines who presented to the ED complaining of dizziness that began at around 8 in the morning. She states that she went to rest thinking that she would sleep off her dizziness, but when she woke up at 10 in the morning, she felt as though she was going to fall and had generalized weakness. Upon evaluation in the ED, patient was noted to have some slurred speech and deviation of her lower lip to the right. She also had tongue deviation to the right. Per at bedside, patient did not have any speech impairments until she got to the hospital. Patient has noted to have decreased left-sided facial sensation and decreased sensation in her left upper and lower extremities. She also has 3 out of 5 motor strength in the left upper and left lower extremity. Patient patient states that she takes metformin, vitamin D, iron supplements, vitamin D supplements at home. She denies taking any other types of herbal supplements. Patient also denies history of stroke. Stroke alert was called in the ED and head CT was done showing no acute intracranial findings. CTA was also negative for any large vessel occlusions. Teleneuro was consulted from ED and recommended further stroke workup. Patient was noted to have elevated systolic blood pressure in the 170s in the ED and afebrile. Blood glucose was within normal limits. Will admit patient to telemetry for further workup and medical management of acute CVA. Will follow-up with MRI, echo, neuro recommendations and start patient on aspirin and statin if able to tolerate p.o. Will follow-up with speech therapy evaluation. Will allow for more permissive hypertension for the first 24 hours.
[2025-04-21] MEDS: SODIUM CHLORIDE 0.9% 1000 ML 1,000 ML 75 ML IV (15:03)
[2025-04-21] MEDS: HEPARIN SOD INJ 5000 UNIT/ML VIAL SC ×2 (15:03→22:04)
[2025-04-21 15:16] LABS: Troponin I < 0.002 ng/mL (0.0-0.045)
[2025-04-21 16:01] VITALS: BP 173/101; PULSE 79; RESP 18; TEMP 36.6; O2SAT 96
--- NOTE | 2025-04-21 16:23 | PD.RESCONSUL ---
HPI Data of Consult Requesting Physician: Flory Godfrey DO Admitting Provider: Flory Godfrey DO Attending Provider: Flory Godfrey DO Primary Care Provider: Physician No Primary/Family Consult Narrative History of present illness: Ms Robertson is a 44-year-old female with PMHx of iron deficiency anemia, migraines, and prediabetes who presented to the ED 04/21 due to dizziness and bilateral blurry vision when she woke up at 8 AM this morning. This progressed to a headache and left facial droop, left upper and lower extremity weakness, and decrease in the left upper and lower extremity sensation to light touch when she was examined in the ED. initial NIHSS score 7. CT head without contrast negative for acute hemorrhage. CTA negative for LVO. MRI stroke protocol negative for LVO. BP max in ED 180/80. EKG showed normal sinus rhythm with QTc WNL (430). Labs significant for mild leukocytosis at 16.6. Of note patient has a history of 1 miscarriage. She has 6 children. She denies history of stroke/TIA, heart failure, DVT, arrhythmias, thyroid disorders, history of clotting. She denies any episodes in the past that are similar to her current symptoms. 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 Home medications include metformin, vitamin D3, vitamin C, and iron. She follows with Dr. Resendiz for the past 3 to 4 years at the [facility] in [place], [place]. Patient was previously prescribed topiramate and sumatriptan for migraines. Upon examination patient reports that she continues to experience dizziness, slurred speech, weakness of the left upper and lower extremities, and decreased sensation in the upper and lower extremities. She denies headache, nausea, vomiting, abdominal pain, heart palpitations, sweating. cc:: cc: Flory Godfrey DO Review of Systems Review of Systems Narrative Review of Systems: 14 point ROS negative other than HPI Exam Vital Signs Temp Pulse Resp BP Pulse Ox O2 Del Method 98 F 79 18 173/101 H 96 Room Air 04/21/25 16:01 04/21/25 16:01 04/21/25 16:01 04/21/25 16:01 04/21/25 16:04/21/25 16:01 Narrative Exam General: No acute distress, well nourished Eye: PERRL, EOMI, normal conjunctiva, no scleral icterus HENT: Normocephalic, atraumatic, moist oral mucosa Neck: Supple, non-tender, no JVD, no lymphadenopathy Lungs: Non-labored respirations, symmetric chest rise Heart: Peripheral pulses intact bilaterally Abdomen: Soft, non-tender, non-distended Musculoskeletal: Normal range of motion and strength Skin: Skin is warm, dry, no rashes or lesions. Psychiatric: Cooperative, appropriate mood and affect Neurologic: Mental status: Orientation: Oriented to person, place, time, and situation Communication: Patient is cooperative and can follow simple instructions Language: Speech fluent in Latvian and Serbian, slowed rate, slurred speech, normal and volume, comprehension intact Cranial nerves: CN II: Visual renteria intact CN III: Pupils equal, round, and reactive to light CN III, IV, : No gaze deviation, no nystagmus Horizontal pursuit: intact Vertical pursuit: intact Ptosis: none CN V: Facial sensation to light touch intact on the right at the forehead, cheeks, and jaw line. Decreased in V1/2/3 distribution on left CN VII: Lower facial droop appreciated on left CN VIII: Able to hear and respond to conversation at normal volume, intact to finger rub CN IX, X: Palate elevation symmetric, uvula midline CN XI: Head turn and shoulder shrug strong, symmetric bilaterally CN XII: Normal tongue protrusion without deviation, no fasciculations Motor: Normal bulk and tone No atrophy No abnormal movements or fasciculations Muscle strength: Shoulder abduction: R 5/5 L 4/5 Elbow flexion: R 5/5 L 4/5 Elbow extension: R 5/5 L 4/5 Hip flexion: R 5/5 L 4/5 Hip extension: R 5/5 L 4/5 Knee flexion: R 5/5 L 4/5 Knee extension: R 5/5 L 4/5 Dorsiflexion and plantarflexion R 5/5 L 4/5 Sensory: Sensation to light touch intact on right upper and lower extremities. Sensation to light touch decreased in left upper and lower extremities. Reflexes: Biceps (C5-6): R 2+ L 2+ Brachioradialis (C5-6): R 2+ L 2+ Triceps (C7-8): R 2+ L 2+ Patellae (L3-4): R 2+ L 2+ Achilles (S1-2):R 2+ L 2+ Cerebellum: RUE: No dysmetria (finger to nose) LUE: No dysmetria (finger to nose) RLE: No dysmetria (heel to burton) LLE: Unable to assess due to weakness of left lower extremity Gait: deferred NIHSS 04/21 at 1730 1A: Level of Consciousness - Alert; keenly responsive?+ 0 1B: Ask Month and Age - Both Questions Right?+ 0 1C: Blink Eyes & Squeeze Hands - Performs Both Tasks?+ 0 2: Test Horizontal Extraocular Movements - Normal?+ 0 3: Test Visual Renteria - No Visual Loss?+ 0 4: Test Facial Palsy (Use Grimace if Obtunded) - Partial paralysis (lower face) + 2 5A: Test Left Arm Motor Drift - Drift, but doesn't hit bed?+ 1 5B: Test Right Arm Motor Drift - No Drift for 10 Seconds?+ 0 6A: Test Left Leg Motor Drift - Drift, but doesn't hit bed?+ 1 6B: Test Right Leg Motor Drift - No Drift for 5 Seconds?+ 0 7: Test Limb Ataxia (FNF/Heel-Burton) - No Ataxia?+ 0 8: Test Sensation - Mild-Moderate Loss: Can sense being touched?+ 1 9: Test Language/Aphasia - Mild-moderate aphasia: some obvious changes without significant limitation?+ 1 10: Test Dysarthria - Mild-moderate dysarthria: slurring but can be understood?+ 1 11: Test Extinction/Inattention - No abnormality?+ 0 NIHSS Score:?7 Results Labs 04/21/25 13:28 04/21/25 13:28 Labs: Short CBC 04/21/25 Range/Units 13:28 WBC 16.6 H (3.6-11.0) Thou/mm3 Hgb 12.7 (12.0-16.0) g/dL Hct 40.5 (36.0-46.0) % Plt Count 380 (140-440) Thou/mm3 BMP 04/21/25 13:28 Sodium 138 Potassium 4.0 Chloride 105 Carbon Dioxide 24.0 BUN 9 Creatinine 0.6 Glucose 92 Calcium 9.1 Cardiac Enzymes 04/21/25 04/21/25 Range/Units 13:28 14:47 Troponin I < 0.002 < 0.002 (0.0-0.045) ng/mL Liver Function 04/21/25 Range/Units 13:28 Total Bilirubin 0.4 (0.3-1.2) mg/dL AST 24 (0-34) U/L ALT 18 (10-49) U/L Alkaline Phosphatase 105 (46-116) U/L Albumin 4.7 (3.5-5.0) gm/dL Quality Measures Quality Measures VTE prophylaxis Medications Home Medications and Allergies Home Medications ?Medication ?Instructions ?Recorded ?Confirmed ?Type Vitamin * 1 tab PO QDAY #0 tabs 04/28/14 08/08/22 History ferrous sulfate 325 mg (65 mg 325 mg PO DAILY 07/26/22 08/08/22 History iron) tablet (Iron (ferrous sulfate)) Allergies Allergy/AdvReac Type Severity Reaction Status Date / Time No Known Allergies Allergy Verified 04/21/25 13:05 Visit Medications Acetaminophen (Acetaminophen 325 Mg Tablet) 650 mg PO Q6H PRN PRN Reason: Fever >101.5 Stop: 05/21/25 14:16 Acetaminophen (Acetaminophen 325 Mg Tablet) 650 mg PO Q6H PRN PRN Reason: PAIN SCALE 1-3 (mild Stop: 05/21/25 14:16 Aspirin (Aspirin Ec 81 Mg Tabec) 81 mg PO QDAY [facility] Stop: 05/22/25 08:59 Atorvastatin Calcium (Atorvastatin Calcium 20 Mg Tablet) 40 mg PO HS [facility] Stop: 05/21/25 20:59 Clopidogrel Bisulfate (Clopidogrel Bisulfate 75 Mg Tablet) 75 mg PO QDAY [facility] Stop: 05/22/25 08:59 Heparin Sodium (Porcine) (Heparin Sod Inj 5000 Unit/Ml Vial) 5,000 unit SC Q8HR [facility] Stop: 05/05/25 14:29 Last Admin: 04/21/25 15:03 Dose: 5,000 unit Hydralazine HCl (Hydralazine Inj 20 Mg/Ml Vial) 10 mg IVP Q6H PRN PRN Reason: Give if SBP>220 AND DBP>120 Stop: 05/21/25 14:29 Sodium Chloride (Ns) 1,000 mls @ 75 mls/hr IV .[id number] [facility] Stop: 05/21/25 14:29 Last Admin: 04/21/25 15:03 Dose: 75 mls/hr Ondansetron HCl (Ondansetron Inj 2 Mg/Ml Inj 2 Ml) 4 mg IVP Q6H PRN; Protocol PRN Reason: NAUSEA OR VOMITING Stop: 05/21/25 14:16 Pantoprazole Sodium (Pantoprazole Inj 40 Mg Vial) 40 mg IVP QDAY FOZIA Stop: 05/21/25 14:29 Last Admin: 04/21/25 15:02 Dose: 40 mg Sennosides (Senna Tablet) 1 tab PO QDAY PRN; Protocol PRN Reason: constipation Stop: 05/21/25 14:16 Discontinued Medications Aspirin (Aspirin 300 Mg Supp) 300 mg MN X1 ONE Stop: 04/21/25 15:16 Assessment & Plan Plan #Left-sided weakness Most likely 2/2 complex migraine Initial symptoms: dizziness, headache, LKAW 0800 on 04/21. Developed left facial droop, decreased sensation of left face and LUE, weakness of LUE and LLE, word finding difficulty, and slurred speech in ED. initial NIHSS. Patient continues to have symptoms (NIHSS 7) at 1730, though patient reports mild improvement of weakness and no headache. No tPA given as patient outside of window CT head w/o: Negative for acute hemorrhage, mass effect, midline shift CTA: Negative for LVO MRI stroke protocol: Negative for acute hemorrhage, mass effect, midline shift. No acute infarct. No findings diagnostic for demyelinating disease. No LVO. UA and UDS negative. Beta-hCG negative Pt has history of migraines, Rx Topiramate and Sumatriptan in the past Plan: - Start Topiramate 25 mg and increase by 25 mg once per weak to max dose 100 mg. F/U outpatient - Observe overnight, pend discharge 04/22 depending on clinical presentation - Hypercoagulable workup - Pending lipids, A1C, TSH, TTE #Hx Iron deficiency anemia Home med: iron supplement No anemia on admission Plan: - Iron panel #Mild leuyukocytosis Patient reports chronically elevated WBC on repeat CBC Afebrile, no source of infection suspected at this time Plan: - F/U hematology outpatient #Prediabetes Home meds: Metformin Plan: - Pending A1c Plan discussed with Dr. Zackery Oakley, PGY1 Attending Provider Attestation/Addendum I personally have seen and examined the patient at the bedside and I agreed with resident's findings, assessment and plan of care. Her presenting symptoms are most likely related to complicated migraine/TIA. I agreed with the continuing aspirin and statin. Reassurance given to the patient regarding negative MRI brain. Will give Topamax 50 mg with weekly titration of 25 mg to a max 100 mg for better migraine prophylaxis.
--- NOTE | 2025-04-21 17:43 | PC.CC ---
Patient is a 44 year-old female who presents to the hospital for Stroke R/O. BENITAWTessa and KNOT SAW OPERATOR Student Taylor made lyxo-cl-kelt contact with patient. ASW introduced self, role, and reason for visit. Patient appeared alert and oriented to self, location, and situation. Patient provided consent for KNOT SAW OPERATOR to remain in the room during assessment. Patient was pleasant and engaged in initial assessment. Patient confirmed information on demographics and reports to living with her spouse and children. Per patient, her medical decision maker in the event she is unable to make her own medical decisions is her , Eriberto Chauhan . Patient is able to ambulate independently prior to this event and was able to complete her own ADLs. Patient's primary provider is [facility] and pharmacy of choice is [email or web address]. Patient did not require any DME prior to this incident and reports to being healthy. Upon discharge patient plans to return home with the support of her family. sales agent business services to follow up with any discharge needs.
[2025-04-21 17:50] LABS: Collection Type, Urine Clean Catch
[2025-04-21 17:59] LABS: Bilirubin,Urine Negative (Negative); Blood,Urine Negative (Negative); Clarity,Urine Clear (Clear/Hazy); Color,Urine Lt-Yellow (Lt Yel-Yel); Glucose, Urine Negative (Negative); Ketones,Urine 1+ (Negative); Leukocyte Esterase,Urine Negative (Negative); Nitrite,Urine Negative (Negative); PH,Urine 6.0 (5.0-7.0); Protein,Urine Negative (Neg - Trace); RBC,Urine 3 /hpf (0-3); Specific Gravity,Urine 1.032 (1.001-1.035); Squamous Epithelial Cell,Urine 1 /hpf (0-5); Urobilinogen,Urine Negative mg/dL (0.0-1.0); WBC,Urine 2 /hpf (0-5)
[2025-04-21 18:03] LABS: Amphetamine/Methamp Scrn,U Negative (Negative); Barbiturate Screen,Urine Negative (Negative); Benzodiazepines Screen,Urine Negative (Negative); Benzoylecgonine Screen, Ur Negative (Negative); Fentanyl Screen,Urine Negative (Negative); Opiate Screen,Urine Negative (Negative); THC Screen,Urine Negative (Negative)
[2025-04-21 18:44] VITALS: BP 129/81; PULSE 70; RESP 16; TEMP 36.8; O2SAT 96
[2025-04-21] MEDS: ASPIRIN 300 MG SUPP PR (18:57)
[2025-04-21 20:21] VITALS: BP 142/68; BP 153/94; BP 157/99; PULSE 77; PULSE 82; PULSE 93
[2025-04-21 21:36] VITALS: BP 147/84; PULSE 81; RESP 19; TEMP 36.6; O2SAT 96
[2025-04-21 22:08] VITALS: PULSE 87
--- NOTE | 2025-04-21 22:51 | PC.NURSE ---
CALLED MD DESAI AND INFORMED HIM PT RIGHTED FACIAL TWITCHING IS WORSENING. PER MD WILL INFORM TELE DAY TEAM.
[2025-04-22] VITALS (9 sets, daily range): BP systolic 124–152; BP diastolic 74–91; PULSE 67–81; RESP 12–95; TEMP 36.1–36.7; O2SAT 96–98; BMI 44.3
[2025-04-22] MEDS: SODIUM CHLORIDE 0.9% 1000 ML 1,000 ML 75 ML IV (02:50)
[2025-04-22 05:10] LABS: Basophils # (Auto) 0.0 Thou/mm3 (0.0-0.2); Basophils % (Auto) 0 % (0-2.5); Eosinophils # (Auto) 0.3 Thou/mm3 (0.0-0.5); Eosinophils % (Auto) 3 % (0-10); Hematocrit 33.7 % (36.0-46.0); Hemoglobin 10.8 g/dL (12.0-16.0); Immature Granulocytes Auto 0.05 Thou/mm3 (0.00-0.00); Lymphocytes # (Auto) 3.6 Thou/mm3 (1.0-4.8); Lymphocytes % (Auto) 30 % (10-50); Mean Corpuscular HGB Conc 32.0 g/dl (31.0-37.0); Mean Corpuscular Hemoglobin 24.3 pg (25.0-35.0); Mean Corpuscular Volume 76 fL (80-100); Monocytes # (Auto) 0.7 Thou/mm3 (0.0-0.8); Monocytes % (Auto) 6 % (0-12); Neutrophils # (Auto) 7.3 Thou/mm3 (1.8-7.7); Neutrophils % (Auto) 61 % (37-80); Nucleated Red Blood Cell # 0.00 Thou/mm3 (0.00-0.00); Nucleated Red Blood Cell % 0 /100 WBC (0); Platelet Count 305 Thou/mm3 (140-440); RDW Standard Deviation 43.1 fL (36.4-46.3); Red Blood Count 4.45 Miln/mm3 (4.00-5.20); White Blood Count 11.9 Thou/mm3 (3.6-11.0)
[2025-04-22 05:17] LABS: Fibrinogen 430 mg/dL (175-375); INR 1.0 (0.9-1.3); Partial Thromboplastin Time 30.7 Seconds (22.0-36.0); Prothrombin Time 11.4 Seconds (9.0-12.2)
[2025-04-22 05:19] LABS: Glucose Estimated Average 103 mg/dL (80-131); Hemoglobin A1C 5.2 % Hgb (4.8-6.0)
[2025-04-22 05:32] LABS: Alanine Aminotransferase 14 U/L (10-49); Albumin, Serum 3.9 gm/dL (3.5-5.0); Albumin/Globulin Ratio 1.4 (1.2-2.2); Alkaline Phosphatase 81 U/L (46-116); Anion Gap 9 (7-16); Aspartate Amino Transferase 21 U/L (0-34); BUN/Creatinine Ratio 12 Ratio (12-20); Bilirubin,Total 0.4 mg/dL (0.3-1.2); Blood Urea Nitrogen 7 mg/dL (9-23); Calcium 8.4 mg/dL (8.3-10.6); Calcium (Corrected) 8.5 mg/dL (8.5-10.1); Carbon Dioxide 25.2 mMol/L (20.0-31.0); Cardiac Risk Estimate 3.9 RATIO (3.7-5.6); Chloride 108 mMol/L (98-107); Cholesterol 149 mg/dL (132-200); Creatinine (Component) 0.6 mg/dL (0.6-1.3); Globulin 2.7 gm/dL (2.3-3.5); Glucose 91 mg/dL (74-106); HDL Cholesterol 38 mg/dL (40-60); LDL Cholesterol,Calculated 49 mg/dL (0-130); Magnesium 1.9 mg/dL (1.6-2.6); Osmolality,Calculated 281 (275-295); Phosphorous 2.5 mg/dL (2.4-5.1); Potassium 3.7 mMol/L (3.4-5.1); Sodium 142 mMol/L (136-145); Thyroid Stimulating Hormone 3.15 uIU/mL (0.55-4.78); Total Protein 6.6 gm/dL (5.7-8.2); Triglycerides 312 mg/dL (30-150); eGFR > 60 See Note
[2025-04-22] MEDS: HEPARIN SOD INJ 5000 UNIT/ML VIAL SC ×2 (05:32→21:25)
[2025-04-22] MEDS: FERROUS SULF 325 MG TABLET PO (08:48)
[2025-04-22] MEDS: CLOPIDOGREL BISULFATE 75 MG TABLET PO (08:48)
[2025-04-22] MEDS: ASPIRIN EC 81 MG TABEC PO (08:48)
--- NOTE | 2025-04-22 09:01 | PCS.ST ---
Swallow Evaluation completed. See report for details. Ora-facial spasms. Pharyngeal function is WFL. Recommend Blenderized diet for now.
[2025-04-22 10:34] LABS: Syphilis Nonreactive (Nonreactive)
[2025-04-22] MEDS: CALCIUM CARBONATE 600 MG TABLET PO (12:00)
[2025-04-22] MEDS: CALCIUM GLUC/NS 1000MG IVPB 1,000 MG/50 ML BAG 50 MG IV (12:01)
--- NOTE | 2025-04-22 12:45 | CHAP ---
Patient was visited by the Spiritual Care Volunteer who prayed for them. (Volunteer was in the hospital from 10:25-12:45).
--- NOTE | 2025-04-22 12:45 | ESPR_ITS ---
Documentation for date of: 04/22/25 Subjective Subjective Interval history: Patient seen at bedside, denies headache, burry vision, or dizziness. Exam Vital Signs Temp Pulse Resp BP Pulse Ox O2 Del Method 97.9 F 81 23 H 144/83 H 97 Room Air 04/22/25 08:00 04/22/25 12:00 04/22/25 10:42 04/22/25 08:00 04/22/25 08:00 04/22/25 08:00 Narrative Exam General: No acute distress, well nourished Eye: PERRL, EOMI, normal conjunctiva, no scleral icterus HENT: Normocephalic, atraumatic, moist oral mucosa Neck: Supple, non-tender, no JVD, no lymphadenopathy Lungs: Non-labored respirations, symmetric chest rise Heart: Peripheral pulses intact bilaterally Abdomen: Soft, non-tender, non-distended Musculoskeletal: Normal range of motion and strength Skin: Skin is warm, dry, no rashes or lesions. Psychiatric: Cooperative, appropriate mood and affect Neurologic: Mental status: Orientation: Oriented to person, place, time, and situation Communication: Patient is cooperative and can follow simple instructions Language: Speech fluent in Congolese and Welsh, slowed rate, slurred speech, normal and volume, comprehension intact Cranial nerves: CN II: Visual blackman intact CN III: Pupils equal, round, and reactive to light CN III, IV, : No gaze deviation, no nystagmus Horizontal pursuit: intact Vertical pursuit: intact Ptosis: none CN V: Facial sensation to light touch intact on the right at the forehead, cheeks, and jaw line. Decreased in V1/2/3 distribution on left CN VII: Face symmetric, no facial droop appreciated CN VIII: Able to hear and respond to conversation at normal volume, intact to finger rub CN IX, X: Palate elevation symmetric, uvula midline CN XI: Head turn and shoulder shrug strong, symmetric bilaterally CN XII: Normal tongue protrusion without deviation Motor: Normal bulk and tone No atrophy Distractible bilateral upper and lower face twitches Muscle strength: Shoulder abduction: R 5/5 L 4/5 Elbow flexion: R 5/5 L 4/5 Elbow extension: R 5/5 L 4/5 Hip flexion: R 5/5 L 4/5 Hip extension: R 5/5 L 4/5 Knee flexion: R 5/5 L 4/5 Knee extension: R 5/5 L 4/5 Dorsiflexion and plantarflexion R 5/5 L 4/5 Sensory: Sensation to light touch intact on right upper and lower extremities. Sensation to light touch decreased in left upper and lower extremities. Reflexes: Biceps (C5-6): R 2+ L 2+ Brachioradialis (C5-6): R 2+ L 2+ Triceps (C7-8): R 2+ L 2+ Patellae (L3-4): R 2+ L 2+ Achilles (S1-2):R 2+ L 2+ Cerebellum: RUE: No dysmetria (finger to nose) LUE: No dysmetria (finger to nose) RLE: No dysmetria (heel to suárez) LLE: Unable to assess due to weakness of left lower extremity Patient able to stand with support/walker. Objective Labs 04/23/25 05:30 04/23/25 05:30 Labs: Laboratory Results - last 24 hr 04/21/25 04/21/25 04/21/25 13:28 14:47 17:35 WBC 16.6 H RBC 5.24 H Hgb 12.7 Hct 40.5 MCV 77 L MCH 24.2 L MCHC 31.4 RDW Std Deviation 42.4 Plt Count 380 Neut % (Auto) 60 Lymph % (Auto) 30 [place] % (Auto) 6 Eos % (Auto) 3 Baso % (Auto) 0 Neut # (Auto) 9.9 H Lymph # (Auto) 5.0 H [place] # (Auto) 1.0 H Eos # (Auto) 0.5 Baso # (Auto) 0.1 Immature Gran # (Auto) 0.08 H Absolute Nucleated RBC 0.00 Immature Gran % 1 H Nucleated RBC % 0 PT 10.9 INR 1.0 APTT 30.3 Fibrinogen Sodium 138 Potassium 4.0 Chloride 105 Carbon Dioxide 24.0 Anion Gap 9 BUN 9 Creatinine 0.6 Estim Creat Clear Calc Not Performed. eGFR > 60 BUN/Creatinine Ratio [address] Glu mg/dL Hemoglobin A1c Calculated Osmolality 274 L Calcium 9.1 Corrected Calcium 9.1 Phosphorus Magnesium 2.0 Total Bilirubin 0.4 AST 24 ALT 18 Alkaline Phosphatase 105 Troponin I < 0.002 < 0.002 Total Protein 7.9 Albumin 4.7 Globulin 3.2 Albumin/Globulin Ratio 1.5 Triglycerides Cholesterol LDL Cholesterol, Calc HDL Cholesterol Cholesterol/HDL Ratio TSH Ur Collection Type Clean Catch Urine Color Lt-Yellow Urine Clarity Clear Urine pH 6.0 Ur Specific [place] 1.032 Urine Protein Negative Urine Glucose (UA) Negative Urine Ketones 1+ A Urine Blood Negative Urine Nitrite Negative Urine Bilirubin Negative Urine Urobilinogen (Auto) Negative Ur Leukocyte Esterase Negative Urine RBC 3 Urine WBC 2 Ur Squamous Epith Cells 1 Urine Bacteria None Urine Opiates Screen Negative Urine Fentanyl Screen Negative Ur Barbiturates Screen Negative U Amphetamin/Meth Scrn Negative U Benzodiazepines Scrn Negative U Cocaine Metab Screen Negative U Marijuana (THC) Screen Negative Syphilis Serology HCG (Qual) Negative 04/22/25 04:36 WBC 11.9 H RBC 4.45 Hgb 10.8 L Hct 33.7 L MCV 76 L MCH 24.3 L MCHC 32.0 RDW Std Deviation 43.1 Plt Count 305 D Neut % (Auto) 61 Lymph % (Auto) 30 [place] % (Auto) 6 Eos % (Auto) 3 Baso % (Auto) 0 Neut # (Auto) 7.3 Lymph # (Auto) 3.6 [place] # (Auto) 0.7 Eos # (Auto) 0.3 Baso # (Auto) 0.0 Immature Gran # (Auto) 0.05 H Absolute Nucleated RBC 0.00 Immature Gran % 0 Nucleated RBC % 0 PT 11.4 INR 1.0 APTT 30.7 Fibrinogen 430 H Sodium 142 Potassium 3.7 Chloride 108 H Carbon Dioxide 25.2 Anion Gap 9 BUN 7 L Creatinine 0.6 Estim Creat Clear Calc Not Performed. eGFR > 60 BUN/Creatinine Ratio [address] Glu mg/dL 103 Hemoglobin A1c 5.2 Calculated Osmolality 281 Calcium 8.4 Corrected Calcium 8.5 Phosphorus 2.5 Magnesium 1.9 Total Bilirubin 0.4 AST 21 ALT 14 Alkaline Phosphatase 81 D Troponin I Total Protein 6.6 Albumin 3.9 D Globulin 2.7 Albumin/Globulin Ratio 1.4 Triglycerides 312 H Cholesterol 149 LDL Cholesterol, Calc 49 HDL Cholesterol 38 L Cholesterol/HDL Ratio 3.9 TSH 3.15 Ur Collection Type Urine Color Urine Clarity Urine pH Ur Specific [place] Urine Protein Urine Glucose (UA) Urine Ketones Urine Blood Urine Nitrite Urine Bilirubin Urine Urobilinogen (Auto) Ur Leukocyte Esterase Urine RBC Urine WBC Ur Squamous Epith Cells Urine Bacteria Urine Opiates Screen Urine Fentanyl Screen Ur Barbiturates Screen U Amphetamin/Meth Scrn U Benzodiazepines Scrn U Cocaine Metab Screen U Marijuana (THC) Screen Syphilis Serology Nonreactive HCG (Qual) Quality Measures Quality Measures VTE prophylaxis (Heparin SC) Assessment & Plan Assessment Current Active Medications: Generic Name Dose Route Start Last Admin Trade Name Freq PRN Reason Stop Dose Admin Acetaminophen 650 mg 04/21/25 14:17 Acetaminophen 325 Mg Tablet PO 05/21/25 14:16 Q6H PRN Fever >101.5 Acetaminophen 650 mg 04/21/25 14:17 Acetaminophen 325 Mg Tablet PO 05/21/25 14:16 Q6H PRN PAIN SCALE 1-3 (mild Aspirin 81 mg 04/22/25 09:00 04/22/25 08:48 Aspirin Ec 81 Mg Tabec PO 05/22/25 08:59 81 mg QDAY FOZIA Administration Atorvastatin Calcium 40 mg 04/21/25 21:00 04/21/25 21:09 Atorvastatin Calcium 20 Mg Tablet PO 05/21/25 20:59 Not Given HS FOZIA Calcium Carbonate 600 mg 04/22/25 09:00 04/22/25 12:00 Calcium Carbonate 600 Mg Tablet PO 05/22/25 08:59 600 mg QDAY FOZIA Administration Dextrose 25 ml 04/21/25 20:17 Dextrose 50%-Water Inj 50 Ml Syringe IV 05/21/25 20:16 Q15MIN PRN BG 50-70 responsive npo pt Dextrose 50 ml 04/21/25 20:17 Dextrose 50%-Water Inj 50 Ml Syringe IV 05/21/25 20:16 Q15MIN PRN BG <50 OR BG <70 & pt unresponsive Ferrous Sulfate 325 mg 04/22/25 09:00 04/22/25 08:48 Ferrous Sulf 325 Mg Tablet PO 05/22/25 08:59 325 mg QOD FOZIA Administration Glucagon 1 mg 04/21/25 20:17 Glucagon Inj 1 Mg Vial IM Q15MIN PRN BG <70, and no IV access Heparin Sodium (Porcine) 5,000 unit 04/21/25 14:30 04/22/25 05:32 Heparin Sod Inj 5000 Unit/Ml Vial SC 05/05/25 14:29 5,000 unit Q8HR FOZIA Administration Hydralazine HCl 10 mg 04/21/25 14:23 Hydralazine Inj 20 Mg/Ml Vial IVP 05/21/25 14:29 Q6H PRN Give if SBP>220 AND DBP>120 Sodium Chloride 1,000 mls @ 75 mls/hr 04/21/25 14:30 04/22/25 02:50 Ns IV 05/21/25 14:29 75 mls/hr .[id number] FOZIA Administration Insulin Human Lispro 0 unit 04/21/25 20:30 04/22/25 12:01 Insulin Lispro (Admelog) 1 Unit/0.01 Ml Unit SC 05/21/25 20:29 Not Given Q6HR FOZIA Protocol Ondansetron HCl 4 mg 04/21/25 14:17 Ondansetron Inj 2 Mg/Ml Inj 2 Ml IVP 05/21/25 14:16 Q6H PRN NAUSEA OR VOMITING Protocol Pantoprazole Sodium 40 mg 04/21/25 14:30 04/22/25 08:48 Pantoprazole Inj 40 Mg Vial IVP 05/21/25 14:29 40 mg QDAY FOZIA Administration Sennosides 1 tab 04/21/25 14:17 Senna Tablet PO 05/21/25 14:16 QDAY PRN constipation Protocol Topiramate 25 mg 04/22/25 21:00 Topiramate 25 Mg Tablet PO 05/22/25 20:59 BID FOZIA Plan Plan #Left-sided weakness, facial droop #Abnormal bilateral upper and lower face twitches Initial symptoms: dizziness, headache, LKAW 0800 on 04/21. Developed left facial droop, decreased sensation of left face and LUE, weakness of LUE and LLE, word finding difficulty, and slurred speech in ED. initial NIHSS. Patient continues to have symptoms (NIHSS 7) at 1730, though patient reports mild improvement of weakness and no headache. No tPA given as patient outside of window CT head w/o: Negative for acute hemorrhage, mass effect, midline shift CTA: Negative for LVO MRI stroke protocol: Negative for acute hemorrhage, mass effect, midline shift. No acute infarct. No findings diagnostic for demyelinating disease. No LVO. UA and UDS negative. Beta-hCG negative, B12 WNL, vitamin D total WNL, folate WNL, TSH WNL, syphilis negative Triglycerides high 312, cholesterol WNL, LDL WNL, HDL low 38 Pt has history of migraines, Rx Topiramate and Sumatriptan in the past Plan: - Continue Topiramate 50 mg and increase by 25 mg once per weak to max dose 100 mg. F/U outpatient - Continue ASA 81 and high-intensity statin - Pending Hypercoagulable labs - Observe overnight, pend discharge 04/23 depending on clinical presentation #Hx Iron deficiency anemia Home med: iron supplement No anemia on admission Plan: - Iron panel #Mild leuyukocytosis Patient reports chronically elevated WBC on repeat CBC Afebrile, no source of infection suspected at this time Plan: - F/U hematology outpatient #Prediabetes Home meds: Metformin A1C 5.2 Plan: - Nothing to do at this time Plan discussed with Dr. Zackery Oakley, PGY1 Attending Provider Attestation/Addendum I personally have seen and examined the patient at the bedside and agree with the resident's findings, assessment and plan of care. Her abnormal facial movements are unlikely from organic causes, likely functional movements, triggered by stress. Reassurance given, no need for any further workup or intervention. Could benefit from counseling and Zoloft. 25 mg for now. No need for inpatient rehab as she does ambulate without much support.
--- NOTE | 2025-04-22 13:54 | PC.SS ---
Addendum entered by KATHLEEN Chapman 04/22/25 14:25: PASRR was completed. Level 2, pending review for closure before discharge. Original Note: SS update: SNF referral sent via for[MD]. Pending responses.
--- NOTE | 2025-04-22 14:21 | ECHO_ITS ---
Transthoracic Echo Report Ht (in): 60 Wt (lb): 215 Exam Location: Echo Lab Status: Inpatient [employer] Superintendent: Yanira Gee Indications: Procedure Performed: BP: 149 / 92 HR: 71 MEASUREMENTS (Male / Female) Normal Values 2D ECHO LV Diastolic Diameter PLAX 5.2 cm 4.2 - 5.9 / 3.9 - 5.3 cm LV Systolic Diameter PLAX 3.5 cm IVS Diastolic Thickness 1.1 cm 0.6 - 1.0 / 0.6 - 0.9 cm LVPW Diastolic Thickness 0.9 cm 0.6 - 1.0 / 0.6 - 0.9 cm LV Relative Wall Thickness 0.4 LVOT Diameter 1.9 cm LA Volume Index 30.8 cm?/m? 16 - 28 cm?/m? Ascending Aorta Diameter 2.6 cm M-MODE AV Cusp Separation MM 1.3 cm DOPPLER AV Peak Velocity 153.0 cm/s AV Peak Gradient 9.4 mmHg LVOT Peak Velocity 87.3 cm/s LVOT Peak Gradient 3.0 mmHg AV Area Cont Eq pk 1.6 cm? MV Area PHT 3.5 cm? Mitral E Point Velocity 77.6 cm/s Mitral A Point Velocity 71.3 cm/s Mitral E to A Ratio 1.1 LV E' Lateral Velocity 8.7 cm/s Mitral E to LV E' Lateral Ratio 8.9 LV E' Septal Velocity 7.5 cm/s Mitral E to LV E' Septal Ratio 10.3 PV Peak Velocity 124.0 cm/s PV Peak Gradient 6.2 mmHg FINDINGS Left Ventricle The left ventricular cavity size is mildly increased. The left ventricular wall thicknesses are normal. The left ventricular ejection fraction is normal, estimated at 55-60%. The left ventricular diastolic function is normal. Right Ventricle The right ventricle is normal in size and systolic function. The estimated right ventricular systolic pressure can not be determined due to innadequate tricuspid signal. Left Atrium The left atrium is normal by two-dimensional, color flow and Doppler imaging with no structural abnormalities, no thrombus formation present. Right Atrium The right atrium is normal by two-dimensional imaging, color flow and Doppler imaging with no structural abnormalities, no thrombus formation present. Atrial Septum Bubble study negative for PFO/ASD. Aorta The aorta is normal by two-dimensional, color flow and Doppler interrogation. Mitral Valve The mitral valve is normal by two-dimensional, color flow and Doppler interrogation. There is no significant mitral valve regurgitation, stenosis or prolapse. Aortic Valve The aortic valve is trileaflet and normal by two-dimensional, color flow and Doppler interrogation. There is no significant aortic valve regurgitation. Tricuspid Valve The tricuspid valve is normal by two-dimensional, color flow and Doppler interrogation. There is no significant tricuspid valve regurgitation. Pulmonic Valve The pulmonic valve is not well visualized. There is no significant pulmonic valve regurgitation. Vessels The pulmonary artery appears normal. The inferior vena cava pulmonary and hepatic veins appear normal. Pericardium The pericardium is normal by two-dimensional imaging. There is no significant pericardial effusion. CONCLUSIONS Indications: Dizziness Bubble Study Negative for PFO/ASD. Mild LVE. Estimated EF 55-60%. Nornal Diastology. RV Nornal. No Pericardial Effusion. Silvia Delgado (Electronically Signed) Final Date: 22 April 2025 15:21
--- NOTE | 2025-04-22 15:09 | PC.NURSE ---
Report given to Mona GUERRERO pt transferred to Med Surg floor
--- NOTE | 2025-04-22 15:32 | ESPR_ITS ---
<Statement entered by Angelo Mcfarlane MD - 04/22/25 17:22> Patient was seen and examined at the bedside. Patient was noted to have left- sided weakness with some mild improvement and persistent twitching along with right perioral spasm. Patient passed fluid screen and was started on bland diet. Neurology suggested to increase her topiramate to 25 mg twice daily and hyper coagulation workup was ordered. Patient was also given calcium gluconate and carbonate. Syphilis panel close ordered.F/U with neuro recs. I discussed and supervised with the fall internship physician who took care of this patient. I personally saw and examined the patient. I agree with most of the assessment and plan. Disclaimer: Despite multiple revisions, due to the dictation software being used, the document bellow may not be free of grammatical errors including phonetic/typographic errors. However, this does not deter from our commitment to providing health care in the patient's best interest in mind. Plan of care discussed with attending Physician Dr. Epifanio Mcfarlane MD PGY-3 Documentation for date of: 04/22/25 Subjective Subjective Interval history: Patient seen and examined at bedside this morning. Reports improved left-sided weakness overall, but continues to have dizziness and numbness in left hand fingers. She denies headache, vision changes, diplopia, chest pain, palpitations, shortness of breath, nausea, or vomiting. Speech fluent but interrupted by right perioral spasms. She has passed her swallow evaluation and diet has been advanced to blenderized per speech therapy. Pertinent Labs: * WBC 11.9 (downtrending) * Hgb 10.8 * Na/K normal * Cr 0.6 * Ca 8.5 ? treated with IV calcium gluconate + PO calcium carbonate Pertinent Studies: Echo pending. Syphilis RPR ordered. Hypercoagulable panel ordered (cardiolipin Ab, lupus anticoagulant, factor V Leiden, protein C/S, prothrombin mutation). Exam Vital Signs Temp Pulse Resp BP Pulse Ox O2 Del Method 98.0 F 73 12 152/87 H 97 Room Air 04/22/25 12:00 04/22/25 12:00 04/22/25 12:00 04/22/25 12:00 04/22/25 12:00 04/22/25 12:00 Narrative Exam General: Obese female, alert, cooperative, mild speech halting with right perioral spasms. Neuro: * Cranial Nerves: Right perioral spasms, fluent speech with mild hesitancy. * Motor Strength: * Right UE: 5/5 * Right LE: 5/5 * Left hand animal scientist: 4/5 * Left ankle dorsiflexion/plantarflexion: 3/5 * Sensation: Decreased sensation in left hand fingers. CV/Lungs: No distress, RRR, clear to auscultation. GI: Soft, nontender. Skin: Warm, dry. Objective Labs 04/22/25 04:36 04/22/25 04:36 Labs: Laboratory Results - last 24 hr 04/21/25 04/22/25 17:35 04:36 WBC 11.9 H RBC 4.45 Hgb 10.8 L Hct 33.7 L MCV 76 L MCH 24.3 L MCHC 32.0 RDW Std Deviation 43.1 Plt Count 305 D Neut % (Auto) 61 Lymph % (Auto) 30 [place] % (Auto) 6 Eos % (Auto) 3 Baso % (Auto) 0 Neut # (Auto) 7.3 Lymph # (Auto) 3.6 [place] # (Auto) 0.7 Eos # (Auto) 0.3 Baso # (Auto) 0.0 Immature Gran # (Auto) 0.05 H Absolute Nucleated RBC 0.00 Immature Gran % 0 Nucleated RBC % 0 PT 11.4 INR 1.0 APTT 30.7 Fibrinogen 430 H Sodium 142 Potassium 3.7 Chloride 108 H Carbon Dioxide 25.2 Anion Gap 9 BUN 7 L Creatinine 0.6 Estim Creat Clear Calc Not Performed. eGFR > 60 BUN/Creatinine Ratio [address] Glu mg/dL 103 Hemoglobin A1c 5.2 Calculated Osmolality 281 Calcium 8.4 Corrected Calcium 8.5 Phosphorus 2.5 Magnesium 1.9 Total Bilirubin 0.4 AST 21 ALT 14 Alkaline Phosphatase 81 D Total Protein 6.6 Albumin 3.9 D Globulin 2.7 Albumin/Globulin Ratio 1.4 Triglycerides 312 H Cholesterol 149 LDL Cholesterol, Calc 49 HDL Cholesterol 38 L Cholesterol/HDL Ratio 3.9 TSH 3.15 Ur Collection Type Clean Catch Urine Color Lt-Yellow Urine Clarity Clear Urine pH 6.0 Ur Specific [place] 1.032 Urine Protein Negative Urine Glucose (UA) Negative Urine Ketones 1+ A Urine Blood Negative Urine Nitrite Negative Urine Bilirubin Negative Urine Urobilinogen (Auto) Negative Ur Leukocyte Esterase Negative Urine RBC 3 Urine WBC 2 Ur Squamous Epith Cells 1 Urine Bacteria None Urine Opiates Screen Negative Urine Fentanyl Screen Negative Ur Barbiturates Screen Negative U Amphetamin/Meth Scrn Negative U Benzodiazepines Scrn Negative U Cocaine Metab Screen Negative U Marijuana (THC) Screen Negative Syphilis Serology Nonreactive Quality Measures Quality Measures VTE prophylaxis (Heparin SC) Assessment & Plan Assessment Current Active Medications: Generic Name Dose Route Start Last Admin Trade Name Freq PRN Reason Stop Dose Admin Acetaminophen 650 mg 04/21/25 14:17 Acetaminophen 325 Mg Tablet PO 05/21/25 14:16 Q6H PRN Fever >101.5 Acetaminophen 650 mg 04/21/25 14:17 Acetaminophen 325 Mg Tablet PO 05/21/25 14:16 Q6H PRN PAIN SCALE 1-3 (mild Aspirin 81 mg 04/22/25 09:00 04/22/25 08:48 Aspirin Ec 81 Mg Tabec PO 05/22/25 08:59 81 mg QDAY FOZIA Administration Atorvastatin Calcium 40 mg 04/21/25 21:00 04/21/25 21:09 Atorvastatin Calcium 20 Mg Tablet PO 05/21/25 20:59 Not Given HS FOZIA Calcium Carbonate 600 mg 04/22/25 09:00 04/22/25 12:00 Calcium Carbonate 600 Mg Tablet PO 05/22/25 08:59 600 mg QDAY FOZIA Administration Dextrose 25 ml 04/21/25 20:17 Dextrose 50%-Water Inj 50 Ml Syringe IV 05/21/25 20:16 Q15MIN PRN BG 50-70 responsive npo pt Dextrose 50 ml 04/21/25 20:17 Dextrose 50%-Water Inj 50 Ml Syringe IV 05/21/25 20:16 Q15MIN PRN BG <50 OR BG <70 & pt unresponsive Ferrous Sulfate 325 mg 04/22/25 09:00 04/22/25 08:48 Ferrous Sulf 325 Mg Tablet PO 05/22/25 08:59 325 mg QOD FOZIA Administration Glucagon 1 mg 04/21/25 20:17 Glucagon Inj 1 Mg Vial IM Q15MIN PRN BG <70, and no IV access Heparin Sodium (Porcine) 5,000 unit 04/21/25 14:30 04/22/25 14:30 Heparin Sod Inj 5000 Unit/Ml Vial SC 05/05/25 14:29 Not Given Q8HR FOZIA Hydralazine HCl 10 mg 04/21/25 14:23 Hydralazine Inj 20 Mg/Ml Vial IVP 05/21/25 14:29 Q6H PRN Give if SBP>220 AND DBP>120 Sodium Chloride 1,000 mls @ 75 mls/hr 04/21/25 14:30 04/22/25 02:50 Ns IV 05/21/25 14:29 75 mls/hr .[id number] FOZIA Administration Insulin Human Lispro 0 unit 04/21/25 20:30 04/22/25 12:01 Insulin Lispro (Admelog) 1 Unit/0.01 Ml Unit SC 05/21/25 20:29 Not Given Q6HR FOZIA Protocol Ondansetron HCl 4 mg 04/21/25 14:17 Ondansetron Inj 2 Mg/Ml Inj 2 Ml IVP 05/21/25 14:16 Q6H PRN NAUSEA OR VOMITING Protocol Pantoprazole Sodium 40 mg 04/21/25 14:30 04/22/25 08:48 Pantoprazole Inj 40 Mg Vial IVP 05/21/25 14:29 40 mg QDAY FOZIA Administration Sennosides 1 tab 04/21/25 14:17 Senna Tablet PO 05/21/25 14:16 QDAY PRN constipation Protocol Topiramate 25 mg 04/22/25 21:00 Topiramate 25 Mg Tablet PO 05/22/25 20:59 BID FOZIA Plan 44F with possible complex migraine vs stroke, improved left-sided weakness, symptomatic hypocalcemia with perioral spasms, ongoing hypercoagulable/stroke workup, and Class III obesity. #Complex Migraine vs ?Conversion disorder #Stroke ruled out Improving left-sided weakness, numbness, mild dizziness; CT and MRI negative for infarct; likely complex migraine.CTA didnt show LVO. NIHSS: Previously 7, no new focal worsening today. Plan: * Plavix discontinued --> continue Aspirin 81mg daily * Topiramate 25mg PO BID for migraine prophylaxis * Neurochecks Q4h * HOB 30? * Continue IV Dextrose %50 * Echo with bubble study pending * Hypercoagulable workup ordered * Syphilis RPR ordered * Passed swallow eval --> diet advanced to blenderized per speech therapy #Symptomatic Hypocalcemia Right perioral spasms, mild speech halting - likely neuromuscular irritability. Plan: * Continue calcium carbonate 600?mg PO daily * Recheck serum calcium, ionized calcium * Monitor EKG for QTc prolongation * Repeat IV calcium gluconate if symptoms persist * Check Mg if spasms persist #Leukocytosis (WBC 11.9, downtrending) Improving; likely reactive. No source of infection. Plan: * Monitor daily CBC * No antibiotics indicated * outpt workup with seat nailer for ch leukocytosis #Iron Deficiency Anemia Mild chronic anemia; stable Hgb 10.8. Plan: * Continue home iron supplements #Hyperglycemia per Patient on metformin #Pre-diabetes? Well-controlled; A1c 5.2. Plan: * Hold metformin due to NPO/variable intake * Monitor glucose #Obesity, Class III (BMI 44.3) Morbid obesity (BMI 44.3) - at risk for complications including VTE, KYUNG. Plan: * Reinforce diet and weight counseling when stable * Encourage mobilization as tolerated * Consider outpatient referral for weight management/nutrition Health Maintenance * Diet: Passed swallow eval ? blenderized diet per speech therapy * DVT Prophylaxis: Heparin SC, Arnav Score ~4 --> moderate risk. * Disposition: Continue inpatient for stroke vs migraine workup * GI prophylaxis: Continue Protonix IV * Code status: Full code ----- Plan discussed with attending physician Dr. Godfrey and senior resident Dr. Denys Santos MD PGY-1 Internal Medicine Attending Provider Attestation/Addendum I, Flory Godfrey, DO, attest that I was physically present for the moses portions of the service and evaluated the patient with the resident and I reviewed and discussed the case with the resident and agree with the resident's findings and plans of care as documented above Patient seen eval this a.m. Patient began having facial dystonia this morning with spasms/ blinking of her left eye and twitching of the left corner of her mouth. Speech remains slow to respond and tongue appears to be deviated to the left. Weakness remains in her left upper and lower extremity about 4 out of 5. Patient was started on topiramate due to concern for complex migraine. Patient states that she had taken topiramate in the past as well. Rest of studies remain negative. Will follow-up with neurology recommendations. Vitamin deficiencies considered and studies ordered. PTH was ordered due to concern for hypocalcemia, however, calcium was low?normal. Gross sensation remains decreased on her left side. She denies any visual changes otherwise.
--- NOTE | 2025-04-22 16:24 | PC.SS ---
Rounding note: patient was downgraded today, no stroke. Patient is agreeable to SNF. [facility]
--- NOTE | 2025-04-22 18:31 | PC.NURSE ---
CONFIRMED WITH DR. GAFFNEY NO MORE NEURO CHECKS.
[2025-04-22 19:13] LABS: Parathyroid Hormone Intact 85.6 pg/ml (18.5-88.0)
[2025-04-22 19:18] LABS: Folate 22.44 ng/mL (>5.38); Vitamin B12 469 pg/mL (211-911); Vitamin D 25 Hydroxy Total 21.0 ng/mL (7.3-40.2)
--- NOTE | 2025-04-22 19:24 | PC.NURSE ---
AT TIME OF SHIFT CHANGE REPORT PT IS ALERT AND ORIENTED X4 ABLE TO COMMUNICATE NEEDS, DENIES DIZZINESS, FACIAL TWITCHING NOTED.
[2025-04-22] MEDS: ATORVASTATIN CALCIUM 20 MG TABLET 40 MG PO (21:24)
[2025-04-22] MEDS: TOPIRAMATE 25 MG TABLET PO (21:24)
[2025-04-23] VITALS: BP 138/59; PULSE 68; PULSE 76; RESP 16; TEMP 36.1; O2SAT 98
[2025-04-23 04:00] VITALS: BP 128/67; PULSE 64; PULSE 67; RESP 16; TEMP 36.3; O2SAT 98
[2025-04-23] MEDS: HEPARIN SOD INJ 5000 UNIT/ML VIAL SC (05:55)
[2025-04-23 06:00] VITALS: BMI 42.5
[2025-04-23 06:11] LABS: Basophils # (Auto) 0.0 Thou/mm3 (0.0-0.2); Basophils % (Auto) 0 % (0-2.5); Eosinophils # (Auto) 0.3 Thou/mm3 (0.0-0.5); Eosinophils % (Auto) 3 % (0-10); Hematocrit 35.5 % (36.0-46.0); Hemoglobin 11.2 g/dL (12.0-16.0); Immature Granulocytes Auto 0.04 Thou/mm3 (0.00-0.00); Lymphocytes # (Auto) 3.1 Thou/mm3 (1.0-4.8); Lymphocytes % (Auto) 26 % (10-50); Mean Corpuscular HGB Conc 31.5 g/dl (31.0-37.0); Mean Corpuscular Hemoglobin 24.1 pg (25.0-35.0); Mean Corpuscular Volume 76 fL (80-100); Monocytes # (Auto) 0.7 Thou/mm3 (0.0-0.8); Monocytes % (Auto) 5 % (0-12); Neutrophils # (Auto) 7.9 Thou/mm3 (1.8-7.7); Neutrophils % (Auto) 66 % (37-80); Nucleated Red Blood Cell # 0.00 Thou/mm3 (0.00-0.00); Nucleated Red Blood Cell % 0 /100 WBC (0); Platelet Count 336 Thou/mm3 (140-440); RDW Standard Deviation 43.4 fL (36.4-46.3); Red Blood Count 4.65 Miln/mm3 (4.00-5.20); White Blood Count 12.0 Thou/mm3 (3.6-11.0)
[2025-04-23 06:28] LABS: Iron 29 mcg/dL (50-170); Percent Iron Saturation 8 % (20-55); Total Iron Binding Capacity 327 mcg/dL (250-425); Unsaturated Iron Binding 298 (225-295)
[2025-04-23 06:34] LABS: Alanine Aminotransferase 16 U/L (10-49); Albumin, Serum 4.2 gm/dL (3.5-5.0); Albumin/Globulin Ratio 1.5 (1.2-2.2); Alkaline Phosphatase 83 U/L (46-116); Anion Gap 11 (7-16); Aspartate Amino Transferase 22 U/L (0-34); BUN/Creatinine Ratio 12 Ratio (12-20); Bilirubin,Total 0.3 mg/dL (0.3-1.2); Blood Urea Nitrogen 7 mg/dL (9-23); Calcium 8.7 mg/dL (8.3-10.6); Calcium (Corrected) 8.7 mg/dL (8.5-10.1); Carbon Dioxide 23.2 mMol/L (20.0-31.0); Chloride 107 mMol/L (98-107); Creatinine (Component) 0.6 mg/dL (0.6-1.3); Estimated Creatinine Clearance 128.9 mL/min (>60); Globulin 2.8 gm/dL (2.3-3.5); Glucose 94 mg/dL (74-106); Magnesium 1.7 mg/dL (1.6-2.6); Osmolality,Calculated 279 (275-295); Phosphorous 2.7 mg/dL (2.4-5.1); Potassium 3.9 mMol/L (3.4-5.1); Sodium 141 mMol/L (136-145); Total Protein 7.0 gm/dL (5.7-8.2); eGFR > 60 See Note
[2025-04-23 08:00] VITALS: BP 130/79; PULSE 86; RESP 18; TEMP 36.2; O2SAT 99
[2025-04-23 08:15] VITALS: PULSE 81
[2025-04-23] MEDS: ASPIRIN EC 81 MG TABEC PO (08:52)
[2025-04-23] MEDS: CALCIUM CARBONATE 600 MG TABLET PO (09:01)
[2025-04-23] MEDS: Magnesium Sulfate 4 GM Ivpb 4 GM/50 ML BAG IV (09:02)
[2025-04-23] MEDS: TOPIRAMATE 25 MG TABLET PO (09:03)
[2025-04-23] MEDS: MULTIVITAMINS TABLET 1 TAB PO (09:03)
[2025-04-23 10:09] LABS: Path Review Blood Smear Sent to Pathologist
--- NOTE | 2025-04-23 11:00 | PC.NURSE ---
DISCHARGE ORDER PUT IN AT 1048, PT HAS BEEN ORDER JARON, SECOND PT EVALUATION, FAMILY PRESERVATION WORKER REPORTS PT GOING HOME WITH HOME HEALTH AND NEEDS A WALKER. WALKER WILL BE DELIVER TO HOSPITAL, PENDING DELIVERY FOR DC.
--- NOTE | 2025-04-23 11:46 | PC.SS ---
SS went to speak to pt and family at bs in regards to DC plan. PT re-eval recommends Home with Home Health with a FWW. Pt and dtr at bedside explained process for home health and DME. DME ordered through [facility], booked with [facility]. SS updated family.
[2025-04-23 12:00] VITALS: BP 147/91; PULSE 80; PULSE 87; RESP 20; TEMP 36.2; O2SAT 99
[2025-04-23] MEDS: SERTRALINE HCL 25 MG TABLET PO (12:33)
[2025-04-23 13:11] LABS: Cocci Serology, IgM Negative (Negative)
--- NOTE | 2025-04-23 13:51 | ESDS_ITS ---
<Statement entered by Angelo Mcfarlane MD - 04/23/25 14:51> I discussed and supervised with the human resources intern physician who took care of this patient. I personally saw and examined the patient. I agree with most of the assessment and plan. Disclaimer: Despite multiple revisions, due to the dictation software being used, the document bellow may not be free of grammatical errors including phonetic/typographic errors. However, this does not deter from our commitment to providing health care in the patient's best interest in mind. Plan of care discussed with attending Physician Dr. Jaycee Mcfarlane MD PGY-3 Planned Discharge Date 04/23/25 DS: Providers Provider Date of admission: 04/21/25 14:56 Primary care physician: Physician Fanny Primary/Family Admitting Provider: Flory Godfrey DO Attending Provider on Admission: Keeley Champion MD Consults: 04/21/25 13:38 Consult to Neurology / Tele-Neurology Routine Comment: Consulting Provider: [facility] 04/21/25 14:23 Consult to Neurology / Tele-Neurology Routine Comment: Consulting Provider: Nathan Vizcarra Referral Physical Therapy Routine Comment: Physician Instructions: 04/21/25 14:24 Referral Speech Therapy Routine Comment: Attending Provider on DC: Keeley Champion MD Discharging Provider: RESIDENT Shahab DS: Diagnosis Problem List Completed Was Problem List Reviewed/Reconciled?: Yes Hospital Course Hospital Course Hospital course: Latoya is a 44-year-old female, BMI 44.3, who works in the agricultural field with a history of iron deficiency anemia, prediabetes, migraines, and no prior CVA/TIA. She presented on 04/21 as a stroke alert for acute dizziness, left facial droop, and left-sided weakness noted by EMS. Initial NIHSS was 6?7 for left facial droop, left upper/lower extremity weakness, mild sensory loss, and mild dysarthria. * Head CT: No acute infarct or hemorrhage. * CTA head/neck: No large vessel occlusion. * MRI brain: Negative for acute infarct, demyelinating disease, or mass effect. * Echo with bubble: Normal, EF 55?60%. She was outside the tPA window, so stroke workup continued with telemetry, permissive hypertension, and dual antiplatelet therapy (Aspirin + Plavix). Plavix was later discontinued when MRI and CTA confirmed no acute infarct. Her neuro exam gradually improved, with left hand cosmetologist apprentice now 4/5 and left ankle dorsiflexion/plantarflexion 3/5 at discharge. She developed right perioral spasms with speech hesitancy, suspected to be related to borderline hypocalcemia (Ca 8.5) - she received 1g IV calcium gluconate, then started on PO calcium carbonate 600mg daily. She initially failed her swallow eval but later passed and was advanced to a blenderized diet. Comprehensive hypercoagulable workup was ordered: cardiolipin Ab, lupus anticoagulant, factor V Leiden, prothrombin mutation, protein C/S, RPR, HSV 1/2, heavy metals, Vitamin D/A, B12 - all pending at discharge. TSH was normal. Neuro recommended no inpatient rehab. Neuro was consulted for possible anxiety component - suggested starting Zoloft, but patient will follow up with psychiatry outpatient for further management. She denied any current psych meds but did take antidepressants and anxiety meds about two years ago (name unknown). Blood counts: initial WBC 16.6 down to 11.9, no infection source found. Hemoglobin stable at 10.8 --> chronic iron deficiency anemia, continuing home iron supplements. A1c was normal at 5.2. Metformin was held during admission due to variable intake. Patient remains clinically stable, tolerating blenderized diet, safe for discharge home. Admission Diagnoses #Possible Complex Migraine vs Stroke (Stroke ruled out) #Symptomatic Hypocalcemia #Iron Deficiency Anemia #Leukocytosis (Reactive) #Prediabetes #Obesity, Class III (BMI 44.3) Care Plan Goals: Continue taking aspirin and atorvastatin daily Take topiramate 25 mg at night and follow-up with neurologist as outpatient Blood work including hypercoagulable workup was ordered which she will need to follow as outpatient after getting them from medical records and to be seen by her PCP Take all home medications prescribed Follow-up with your PCP as outpatient within 2 weeks In case of emergency, call 911 or come back to the ED ----- Plan discussed with attending physician Dr. Champion and senior resident Dr. Denys Santos MD PGY-1 Internal Medicine Time Spent with Patient Time attestation: Total time spent providing and/or coordinating discharge services: Time spent: Greater than 30 minutes Exam Vital Signs Temp Pulse Resp BP Pulse Ox O2 Del Method 97.2 F 80 20 147/91 H 99 Room Air 04/23/25 12:00 04/23/25 12:00 04/23/25 12:00 04/23/25 12:00 04/23/25 12:00 04/23/25 12:00 Narrative Exam Physical Exam at Discharge General: Awake, alert, no acute distress. HEENT: Normocephalic, atraumatic. MMM. Neck: Supple, no LAD. Heart: RRR, no murmurs/rubs/gallops. Lungs: Clear to auscultation bilaterally. Abdomen: Soft, nontender, nondistended. Extremities: No edema. Neuro: * Cranial Nerves: Right perioral spasms persist but mild. * Motor: RUE/RLE 5/5; L hand cosmetologist apprentice 4/5; L ankle dorsiflexion/plantarflexion 3/5. * Sensory: Mild decreased sensation left hand fingers * Skin: Warm, dry, intact. Discharge Plan Plan Patient Disposition: HOME (Self Care) Patient condition on transfer: Stable Care Plan Goals: You have been started on Zolofot 25 mg at night Continue taking aspirin and atorvastatin daily Take topiramate 25 mg twice a day and follow-up with neurologist as outpatient Blood work including hypercoagulable workup was ordered which she will need to follow as outpatient after getting them from medical records and to be seen by her PCP Take all home medications prescribed Follow-up with your PCP as outpatient within 2 weeks In case of emergency, call 911 or come back to the ED Prescriptions/Referrals Prescriptions/Med Rec: New aspirin 81 mg Tablet,Delayed Release (Dr/Ec) 81 mg PO QDAY 90 Days Qty: 90 0RF atorvastatin 40 mg tablet 40 mg PO HS 90 Days Qty: 90 0RF topiramate 25 mg Tablet 25 mg PO BID Qty: 90 0RF multivitamin with folic acid [Tab-A-Carmencita] 400 mcg Tablet 1 tab PO QDAY Qty: 90 0RF sertraline 25 mg Tablet 25 mg PO HS Qty: 90 0RF Continued ascorbic acid (vitamin C) 1,000 mg tablet 1 g PO DAILY Patient Comments: 1 TABLETA PAPA SISIZ AL CHANTELLE, JUNTO CON EL ALICIA. cholecalciferol (vitamin D3) 125 mcg (5,000 unit) capsule 125 mcg PO DAILY Patient Comments: TAKE 1 TABLET BY MOUTH ONCE DAILY FOR LOW VITAMIN D LEVELS. Zepbound 2.5 mg/0.5 mL pen injector 2.5 mg SUBCUT QWEEK Patient Comments: INJECT 2.5 MG SUBCUTANEOUSLY EVERY WEEK new rx, hasnt started sumatriptan succinate 50 mg tablet 50 mg PO Q6HR PRN (Reason: migraine headache) Patient Comments: PLEASE SEE ATTACHED FOR DETAILED DIRECTIONS patient has not been taking for lack of migraines ferrous sulfate [Iron (ferrous sulfate)] 325 mg (65 mg iron) Tablet 325 mg PO DAILY Discontinued metformin 500 mg tablet extended release 24hr 1,000 mg PO HS Patient Comments: TAKE 2 TABLETS BY MOUTH ONCE EVERY DAY WITH DINNER topiramate 25 mg tablet 25 mg PO HS Patient Comments: TAKE 1 TABLET BY MOUTH NIGHTLY patient hasnt been taking, no migraines lately Referrals: No Primary/Family,Physician [Primary Care Provider] - Nathan Vizcarra MD [Physician] - Patient/Caregiver Discharge Instructions Print Language: Vietnamese Stand Alone Forms: Rosa Award Info., Patient Portal Info Letter Discharge Order Discharge Orders: Discharge (Routine); Ordered 04/23/25 Ordered By: Angelo Mcfarlane Quality Discharge Quality Measures VTE prophylaxis MD Attestestation MD Attestation I attest that I was physically present for the evaluation, physical examination, lab and imaging review of the patient with the residents. I discussed the case with the residents and agree with the findings and plans of care as documented above. At bedside today, patient continues to have twitching episodes of her facial muscles, alternating randomly between left and right side. Does not appear to have any focal deficits. Discussed with neurology, agreed patient's symptoms most likely stress related. Started her on sertraline as recommended. Patient will be discharged home with home health. Keeley Champino MD
[2025-04-23 15:00] VITALS: BP 129/71; PULSE 82; RESP 18; TEMP 36.5; O2SAT 97
--- NOTE | 2025-04-23 15:28 | CHAP ---
Patient was visited by the Spiritual Care Volunteer who prayed for them. (Volunteer was in the hospital from 14:15-15:28)
[2025-04-24 07:21] LABS: Cocci Serology, IgG Negative (Negative)
--- NOTE | 2025-04-24 11:12 | PC.CC ---
HH referral sent out, [facility] accepted and booked. SOC pending
--- NOTE | 2025-04-26 08:59 | PC.CC ---
[facility] accepted patient, SOC 04/25/25.
[2025-04-26 22:04] LABS: HSV1 IgG Type Specific Ab >58.00 INDEX
[2025-04-27 06:55] LABS: HSV2 IgG Type Specific Ab <0.90 INDEX
[2025-04-27 06:55] LABS: Protein C Activity* 137 % normal (70-180)
[2025-04-27 06:57] LABS: Hexagonal Phase Confirm NEGATIVE (NEGATIVE); PTT-LA Screen 42 seconds (< OR = 40); Protein S Activity* 111 % normal (60-140); dRVVT Screen 35 seconds (< OR = 45)
[2025-04-28 06:30] LABS: Vitamin D,1,25 (OH)2,Total 78 pg/mL (18-72); Vitamin D3, 1,25 (OH)2 78 pg/mL
[2025-04-28 06:31] LABS: Vitamin D2, 1,25 (OH)2 <8 pg/mL
[2025-04-30 03:03] LABS: Cardiolipin Ab (IgA) <2.0 APL-U/mL; Cardiolipin Ab (IgG) <2.0 GPL-U/mL
[2025-04-30 05:04] LABS: Cardiolipin Ab (IgM) <2.0 MPL-U/mL; Factor V Leiden Mutation NEGATIVE; Prothrombin Fac II Mutation NEGATIVE
[2025-05-03 07:40] LABS: Vitamin A (Retinol)* 39 mcg/dL (38-98)
[2025-05-03 08:11] LABS: ANA Screen, IFA NEGATIVE (NEGATIVE); Copper* 159 mcg/dL (70-175); Lead, Venous <1.0 mcg/dL (<3.5); Zinc, Plasma* 74 mcg/dL (60-130)
== END 2025-04-23 15:00 | disposition home health service (06) | DRG 103 ==
LOC: SERX 14:55 → SERHOLD 14:57 → S2NX 23:07 → S3SX 04-22 15:10
PROVIDERS: Nurse Practitioner Family; Student in an Organized Health Care Education/Training Program; Admitting Provider Internal Medicine; Emergency Provider Emergency Medicine; Visit Provider Student in an Organized Health Care Education/Training Program
DX: G43.109 Migraine with aura, not intractable, without status migrainosus (principal); R47.01 Aphasia; Z68.41 Body mass index [BMI] 40.0-44.9, adult; R29.810 Facial weakness; R47.1 Dysarthria and anarthria; D72.829 Elevated white blood cell count, unspecified; H91.92 Unspecified hearing loss, left ear; R53.1 Weakness; D50.9 Iron deficiency anemia, unspecified; E83.51 Hypocalcemia; E66.813 Obesity, class 3; K14.8 Other diseases of tongue; R29.707 NIHSS score 7; Z79.82 Long term (current) use of aspirin; Z79.84 Long term (current) use of oral hypoglycemic drugs; G24.9 Dystonia, unspecified; R73.03 Prediabetes
CPT/HCPCS: 36415; 70450; 70496; 70498; 70544; 80053; 80061; 80307; 81001; 81240; 81241; 82306; 82525; 82607; 82652; 82746; 83036; 83540; 83550; 83655; 83735; 83970; 84100; 84443; 84484; 84590; 84630; 84703; 85025; 85303; 85306; 85384; 85610; 85613; 85730; 86038; 86147; 86331; 86635; 86695; 86696; 86780; 87086; 87530; 92526; 92610; 93225; 93306; 96361; 96372; 96374; 97162; A4649; J0613; J1644; J2470; J3475; J7030; Q9967; A9270

== ENCOUNTER 2025-06-11 10:30 | Outpatient (RCR) | payer BC, MEDICAID, SELFPAY ==
--- NOTE | 2025-06-03 11:38 | PT.OIERPT ---
PT OP Initial Eval Patient Information Outpatient Physical Therapy Treatment Date: 06/03/25 Visit Reasons: lower extremity weakness Medical Diagnosis: R26.898 Treatment Dx #1: Left Side Weakness Treatment Dx #2: Difficulty Walking Start of Care: 06/03/25 Date of Onset: April 2025 Smoking Status Smoking Status: Never smoker Initial Assessment Subjective: Pt is a 44 y/o female reports of left side weakness and difficulty walking since April 2025. Pt mentioned it first started with a headache and her speech prior to heading to the ER. Pt was admitted to [facility] for 3 days and no results came out out of the hospitalization. Pt has seen several doctors and some mentioned it's stress and anxiety and other mentioned minim stroke. Pt has difficulty with self care, cooking, cleaning, walking, chores, balance, standing, and performing recreational activities. Pt now has to use 4ww to help with walking. Objective: Left Shoulder AROM Flexion: 90 deg Abduction: 100 deg External Rotation: 80 deg Internal Rotation: 60 deg Left UE MMTs: grossly 3-/5 Left LE PROM: all motions are WFL Left LE MMTs: grossly 3-/5 Gait Observation: left foot drag with swing using 4ww Assessment: Pt demonstrate left side weakness and difficulty walking leading to limitation with ADLs. Pt will benefit from physical therapy to increase ROM, strength, and work on ambulation. Short Term and Assisted Goals 1) Increase left UE MMTs: grossly to 3+/5 in 12 wks to be able to cook and clean 2) Increase left shoulder AROM WFL in 12 wks to be able to perform lifting activities 3) Increase left LE MMTs grossly to 4-/5 in 12 wks to be able to walk more than 30 mins 4) Increase left LE AROM WFL in 12 wks to be able to perform recreational activities 5) Indep with HEP Treatment Plan 1) Manual Therapy 2) Therapeutic Activities 3) Therapeutic Exercises 4) Balance Training 5) Gait Training Frequency and Duration: 2 x wk for 12 wks Certification Dates: 06/03/25 to 09/03/25 Procedure Charges OP PT Eval Mod Complex 30 minutes: Yes
--- NOTE | 2025-06-11 10:36 | PT.ODAYNRPT ---
PT Outpatient Daily Note OP Daily Note Outpatient Physical Therapy Treatment Date: 06/11/25 Visit Reasons: lower extremity weakness Subjective: No new concerns to report. Pt continues to notice left foot drop Objective: Please see flow chart for list ther ex performed Assessment: minimal changes noted with left foot drop. Recommend patient to follow up with PCP soon to see if PCP can order custom AFO with DF assist option to help patient improve her gait. Pt gave verbal understanding and consent. Plan: Continue with PT Length of Time (minutes) of Treatment: 30 Minutes Procedure Charges Therapeutic Exercise 30 minutes: Yes
== END 2025-06-13 23:59 | disposition home or self-care (01) ==
LOC: CPTX 10:30
PROVIDERS: PCP Internal Medicine; Referring Provider Internal Medicine; Visit Provider Internal Medicine
DX: R53.1 Weakness (principal); R26.2 Difficulty in walking, not elsewhere classified; R26.89 Other abnormalities of gait and mobility
CPT/HCPCS: 97110; 97162

== ENCOUNTER 2025-07-07 10:30 | Outpatient (RCR) | payer BC, MEDICAID, SELFPAY ==
--- NOTE | 2025-06-16 09:36 | PT.ODAYNRPT ---
PT Outpatient Daily Note OP Daily Note Outpatient Physical Therapy Treatment Date: 06/16/25 Visit Reasons: Lower extremity weakness Subjective: Pt reports she has been trying to stay active and perform exercises at home and even playing with her toddler by kicking a ball. Objective: Please see flow sheet for ther ex list. Assessment: Working on hip flexor recruitment and knee flexion to improve foot clearance during gait. Plan: Continue with pOC. Length of Time (minutes) of Treatment: 30 Minutes Procedure Charges Therapeutic Exercise 30 minutes: Yes
--- NOTE | 2025-06-18 15:14 | PT.ODAYNRPT ---
PT Outpatient Daily Note OP Daily Note Outpatient Physical Therapy Treatment Date: 06/18/25 Visit Reasons: Lower extremity weakness Subjective: Pt is walking better at home. Pt notice decrease left foot drop and has been using wall and objects around to assist with walking within the house. Objective: Please see flow chart for list of ther ex performed Assessment: improved left foot drop with more foot clearance in swing noted today. Pt fatigue post PT session. Plan: Continue with PT Length of Time (minutes) of Treatment: 30 Minutes Procedure Charges Therapeutic Exercise 30 minutes: Yes
--- NOTE | 2025-06-21 10:58 | PT.ODAYNRPT ---
PT Outpatient Daily Note OP Daily Note Outpatient Physical Therapy Treatment Date: 06/21/25 Visit Reasons: Lower extremity weakness Subjective: Pt is dragging foot again. Pt mentioned she did a lot of walking at home. Pt notice decrease left foot dragging when she walks slower Objective: Please see flow chart for list of ther ex performed Assessment: patient instructed to ambulate slower to improve left foot dragging and work on engaging the correct muscles with gait. Pt gave verbal understanding and consent. Pt had difficulty with LAQ and standing marches with 1# weight; exercises modified and completed without weight Plan: Continue with PT Length of Time (minutes) of Treatment: 30 Minutes Procedure Charges Therapeutic Exercise 30 minutes: Yes
--- NOTE | 2025-06-24 15:45 | PT.ODAYNRPT ---
PT Outpatient Daily Note OP Daily Note Outpatient Physical Therapy Treatment Date: 06/24/25 Visit Reasons: Lower extremity weakness Subjective: Pt reports compliance with HEP and has been trying to do more at home when it comes to preparing meals and chores. Objective: Please see flow sheet for ther ex list. Assessment: Pt educated on safety and fall risk when it comes to performing house chores to be cautious about not having AD, pt has L foot drop high fall risk. Plan: Continue with pOC. Length of Time (minutes) of Treatment: 30 Minutes Procedure Charges Therapeutic Exercise 30 minutes: Yes
--- NOTE | 2025-06-28 10:58 | PT.ODAYNRPT ---
PT Outpatient Daily Note OP Daily Note Outpatient Physical Therapy Treatment Date: 06/28/25 Visit Reasons: Lower extremity weakness Subjective: Pt reports improvement with walking and is performing more chores at home independently; confirms she is cautious and safe. Objective: See F/S for therex performed Assessment: Demo'd improvement with increased Lt foot clearance when ambulating and throughout exercises; performs best with verbal cues to encourage dorsiflexion. Improvement with LAQ exercise with verbal cue to hold knee extension for 2 seconds. Plan: Continue with POC Length of Time (minutes) of Treatment: 30 Minutes Procedure Charges Therapeutic Exercise 30 minutes: Yes
--- NOTE | 2025-07-02 12:48 | PT.ODAYNRPT ---
PT Outpatient Daily Note OP Daily Note Outpatient Physical Therapy Treatment Date: 07/02/25 Visit Reasons: Lower extremity weakness Subjective: Pt's foot drop is a little better. Pt mentioned she seen neurologist but repeat MRI was not review with her. Pt has a follow up with PCP and will follow up. Objective: Please see flow chart for list of ther ex performed Assessment: minimal improvement with foot drop which continues to cause limitation with ADLs and ambulation Plan: Continue with PT Length of Time (minutes) of Treatment: 30 Minutes Procedure Charges Therapeutic Exercise 30 minutes: Yes
--- NOTE | 2025-07-07 11:19 | PTNOTE_ITS ---
PT Outpatient Daily Note OP Daily Note Outpatient Physical Therapy Treatment Date: 07/07/25 Visit Reasons: Lower extremity weakness Subjective: Pt reports she has compliant with HEP and when she was at a family house she was practicing going up and down stairs using hand railing. Objective: Please see flow sheet for ther ex list. Assessment: Worked on modified SLB using [employer] and tip toe touch on R LE, minimal sway. Plan: Continue with pOC. Length of Time (minutes) of Treatment: 30 Minutes Procedure Charges Therapeutic Exercise 30 minutes: Yes
== END 2025-07-13 23:59 | disposition home or self-care (01) ==
LOC: CPTX 10:30
PROVIDERS: PCP Internal Medicine; Referring Provider Internal Medicine; Visit Provider Internal Medicine
DX: R53.1 Weakness (principal); R26.2 Difficulty in walking, not elsewhere classified; R26.89 Other abnormalities of gait and mobility
CPT/HCPCS: 97110

== ENCOUNTER 2025-07-21 11:30 | Outpatient (RCR) | payer BC, MEDICAID, SELFPAY ==
--- NOTE | 2025-07-14 12:02 | PT.ODAYNRPT ---
PT Outpatient Daily Note OP Daily Note Outpatient Physical Therapy Treatment Date: 07/14/25 Visit Reasons: Lower extremities Subjective: Pt's MRI and US of the neck came back negative. According to patient provider thinks she had a mini stroke Objective: tolerate exercises with minimal pain Assessment: improved foot drop and gait is better in swing phase. Pt was able to completely go up and down the 4 step Plan: Continue with PT Length of Time (minutes) of Treatment: 30 Minutes Procedure Charges Therapeutic Exercise 30 minutes: Yes
--- NOTE | 2025-07-16 10:19 | PT.ODAYNRPT ---
PT Outpatient Daily Note OP Daily Note Outpatient Physical Therapy Treatment Date: 07/16/25 Visit Reasons: Lower extremities Subjective: Pt still doesn't have full control of her left ankle but strength in the extremities are getting better. Objective: Please see flow chart for list of ther ex performed Assessment: continues to slowly improve with ambulation. Pt demonstrate less foot drop, however, has fatigue post step up and lateral step exercises due to quad weakness Plan: Continue with PT Length of Time (minutes) of Treatment: 30 Minutes Procedure Charges Therapeutic Exercise 30 minutes: Yes
--- NOTE | 2025-07-21 14:55 | PT.ODS1RPT ---
PT OP Progress/Discharge Note Date of Service: 07/21/25 Progress Note/DC Note Progress Note/Discharge Note: DC Note Patient Information Visit Reasons: Lower extremities Medical Diagnosis: R26.898 Treatment Dx #1: Left Side Weakness Treatment Dx #2: Difficulty Walking Service Continue Service or Discharge: Discharge Discharge Date: 07/21/25 Status Subjective: Pt's leg and foot drop is much better. Pt has been able to start light ADLs around the house. Pt still notice left side weakness leading to difficulty with prolonged activities and certain ADLs. Pt will like to continue with physical therapy, however, no further extension from PCP. Objective: Left Shoulder AROM: all motions are WFL Left UE MMTs: grossly 3+/5 Left LE AROM: all motions are WFL Left LE MMTs: grossly 3/5 Assessment: Pt demonstrate improved left side weakness allowing her to start light ADLs, ambulate and chores with less limitation. Pt has not met set goals and will continue to benefit from physical therapy, however, no further auth/extension via MD to continue physical therapy. Pt was instructed on HEP last session and educated to continue exercises to maintain overall mobility. Pt performed all exercises safely, thank you for your referrals. Plan: D/C home with HEP and follow up with [facility] Procedure Charges Therapeutic Exercise 30 minutes: Yes
== END 2025-08-13 23:59 | disposition home or self-care (01) ==
LOC: CPTX 11:30
PROVIDERS: PCP Internal Medicine; Referring Provider Internal Medicine; Visit Provider Internal Medicine
DX: R53.1 Weakness (principal); R26.2 Difficulty in walking, not elsewhere classified; R26.89 Other abnormalities of gait and mobility
CPT/HCPCS: 97110